=== PATIENT | female | born 1955 | race Caucasian/White ===

== ENCOUNTER 2018-02-01 00:33 | Outpatient (CLI) | payer BC, SELFPAY ==
--- NOTE | 2018-02-01 08:12 | DI.US_ITS ---
SYMPTOM/DIAGNOSIS: INTERMITTENT RUQ PAIN, R10.11 ABDOMEN ULTRASOUND: The aorta is normal. The vena cava is normal. The liver is intact. The gallbladder is normal. There are no stones or ductal dilatation. The pancreas and spleen are intact. The kidneys are normal. There is no evidence of abdominal free fluid. IMPRESSION: Normal abdomen ultrasound.
== END 2018-02-01 00:53 ==
PROVIDERS: PCP Family Medicine; Visit Provider Family Medicine
DX: R10.11 Right upper quadrant pain (principal)
CPT/HCPCS: 76700

== ENCOUNTER 2018-03-04 02:43 | Outpatient (CLI) | payer BC, SELFPAY ==
[2018-03-04 11:43] LABS: TSH (W/Ref FT4) 1.14 uIU/mL (0.358-3.74)
== END 2018-03-04 03:03 ==
PROVIDERS: PCP Family Medicine; Visit Provider Internal Medicine
DX: F41.9 Anxiety disorder, unspecified (principal); G43.909 Migraine, unspecified, not intractable, without status migrainosus
CPT/HCPCS: 36415; 84443

== ENCOUNTER 2018-03-09 01:12 | Outpatient (CLI) | payer BC, SELFPAY ==
--- NOTE | 2018-03-09 12:59 | DI.MAMMO_ITS ---
SYMPTOMS/DIAGNOSIS: SCREENING, Z12.31 BILATERAL SCREENING MAMMOGRAM: Mammograms were interpreted according to the usual protocol including computer analysis with CAD system, tomosynthesis and C view imaging. Comparison is made with exams from 2010 through 2017. The breasts are composed of heterogeneously dense fibroglandular tissue, breast density category C. No suspicious masses or suspicious microcalcifications are seen. There has been no significant change. IMPRESSION: Category 1C, negative mammogram. Yearly screening mammography is recommended. [facility] ASSESSMENT OF FINDINGS: Negative. Category 1. Patient will receive a letter notifying them of these results. Bi-RADS category C. The breasts are heterogeneously dense, which may obscure small masses.
--- NOTE | 2018-03-09 13:03 | DI.RAD_ITS ---
SYMPTOM/DIAGNOSIS: COUGH, RALES RT LUNG FIELD, R05 PA AND LATERAL CHEST: There are no prior comparison exams. The heart size is normal. The lungs appear clear. No infiltrate or effusion is seen. There is mild apical scarring. IMPRESSION: No acute abnormality.
== END 2018-03-09 01:32 ==
PROVIDERS: PCP Family Medicine; Visit Provider Family Medicine
DX: Z12.31 Encounter for screening mammogram for malignant neoplasm of breast (principal); R05 Cough; R09.89 Other specified symptoms and signs involving the circulatory and respiratory systems
CPT/HCPCS: 77063; 77067; 71046

== ENCOUNTER 2018-03-29 00:31 | Outpatient (CLI) | payer BC, SELFPAY ==
--- NOTE | 2018-03-29 12:56 | DI.NM_ITS ---
SYMPTOMS/DIAGNOSIS: RIGHT UPPER QUADRANT PAIN, NORMAL US, R10.11 CCK-HIDA SCAN: The patient received 4.9 mCi of technetium 99m Mebrofenin. The patient then received 0.89 mcg of CCK according to protocol. The liver, gallbladder, bile ducts and small bowel were visualized at the appropriate time intervals. During the infusion of CCK, the patient did experience right upper quadrant pain , which resolved. The gallbladder ejection fraction was calculated at 62% ( normal gallbladder ejection fraction at [facility] is >/= 40% with CCK). IMPRESSION: 1. Normal gallbladder ejection fraction. Normal visualization of the gallbladder and small bowel. 2. Right upper quadrant pain during the infusion of CCK.
== END 2018-03-29 00:51 ==
PROVIDERS: PCP Family Medicine; Visit Provider Surgery
DX: R10.11 Right upper quadrant pain (principal)
CPT/HCPCS: 78227

== ENCOUNTER 2018-04-26 08:15 | Day surgery (SDC) | payer BC, SELFPAY ==
[2018-04-26 08:38] VITALS: BP 105/70; PULSE 66; RESP 16; TEMP 37.6; O2SAT 100
[2018-04-26] MEDS: Lactated Ringers 1,000 ML 80 ML IV ×2 (09:05→11:02)
--- NOTE | 2018-04-26 10:02 | W.PM.HP.N ---
Date of service: 04/26/18 Time of Service: 10:02 Assessment and Plan (1) Family history of colon cancer: Current visit: No Status: Acute (2) Upper abdominal pain: Current visit: Yes Status: Acute (3) Encounter for screening colonoscopy: Current visit: Yes Status: Acute P\\ Colonoscopy and EGD under sedation Risks, benefits and complications have been reviewed. Complications include but are not limited to bleeding, pain, perforation, missed small lesion/polyp, sore throat, aspiration and adverse reaction to the medications. Questions were entertained and answered to their satisfaction and they wished to proceed. No guarantees were given or implied. Risks, benefits and complications have been reviewed. Complications include but are not limited to bleeding, pain, perforation, sore throat, aspiration, and adverse reaction to the medications. Questions were entertained and answered to their satisfaction and they wished to proceed. No guarantees were given or implied. History of Present Illness Narrative: Has had intermittent RUQ pain that sometimes radiates to her shoulder and back for a few month. Not always associated with food. Sometimes made worse with exercise. Did have some improvement after taking antibiotics for an ear infection. No N/V. Has had some intermittent heart burn in the past, usually if she drinks coffee after exercising. Doesn't take anything for it. Has an US which was negative for gallbladder disease. HIDA scan was normal as well Has had several surgeries in the lower abdomen. Oopherectomy and appendectomy. Her last Colonoscopy was in 2011 and was normal. Her father had colon cancer in his early 70's. She denies any changes in bowel habits, melena, hematochezia, or unintentional weight loss. There have been no changes in her health since I saw her last. 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 Grandfather Heart disease Myocardial infarction Stroke Grandfather Asthma Grandmother Heart disease Myocardial infarction Stroke Grandmother Heart disease Mental disorder Myocardial infarction Stroke Other Thyroid disease Status post corneal transplant (Acute) S/P colonoscopy (Acute ~2011) Appendectomy (~1976) Bilateral salpingectomy with oophorectomy section (~1990) Endometrial Biopsy [facility] Family History Mother Essential hypertension Hyperlipidemia MS (multiple sclerosis) Father Personal history of malignant neoplasm Hyperlipidemia Brother Hyperlipidemia Brother No problems noted. 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) Tension-type headache (Acute 02/21/13) Ptosis of eyelid (Acute 03/20/13) Migraine (Acute) Depression (Acute 01/01/16) Cervicalgia (Acute 04/17/13) Cataract (Acute 03/20/13) Bunion (Acute) Social History Smoking/Tobacco Use Status: Never alcohol intake: current alcohol intake frequency: a few times a week substance use type: does not use Surgical History Status post corneal transplant (Acute) S/P colonoscopy (Acute ~2011) Appendectomy (~1976) Bilateral salpingectomy with oophorectomy section (~1990) Endometrial Biopsy [facility] Social History Smoking/Tobacco Use Status: Never alcohol intake: current alcohol intake frequency: a few times a week substance use type: does not use Meds Home Medications Medication Instructions Recorded Confirmed Type carboxymethylcellulose sodium 1 ea OPHTHALMIC DAILY 11/21/14 04/26/18 History [Refresh Plus] prednisolone acetate [Pred Forte] 1 drp OPHTHALMIC BID PRN drp 11/21/14 04/26/18 History inhalational spacing device #1 aer 12/10/14 04/13/18 History [Aerochamber Mv] metoclopramide HCl 10 mg PO DAILY PRN #60 tab-cap 08/17/17 04/26/18 History albuterol sulfate [Proair Hfa] 1 - 2 puff INHALATION before 12/15/17 04/26/18 History exercise PRN #2 inhaler sod phos mono-sod phos dibasic 1.5 4 tab PO Q15M #32 tab 03/11/18 04/26/18 Rx gram (1.102-0.398) tablet ketorolac 10 mg tablet 10 mg PO q 8 h PRN #30 tab-cap 04/06/18 04/26/18 Rx lorazepam 1 mg tablet 0.5 - 1 mg PO HS PRN #20 tab 04/06/18 04/26/18 Rx cyclobenzaprine 10 mg tablet 10 mg PO TID PRN #30 tab 04/20/18 04/26/18 Rx Allergies Allergy/AdvReac Type Severity Reaction Status Date / Time Penicillins Allergy Unknown Unverified 04/26/18 08:33 codeine AdvReac Unknown Unverified 04/26/18 08:33 tramadol AdvReac Unknown Unverified 04/26/18 08:34 Exam Resp Effort & Inspection: normal respiratory effort Auscultation: clear to auscultation bilaterally Cardio Rate: regular rate Rhythm: regular rhythm Heart Sounds: no gallops, no murmurs and no rubs Results Last Vital Signs Temp 99.7 F H 04/26/18 08:38 Pulse 66 04/26/18 08:38 Resp 16 04/26/18 08:38 BP 105/70 04/26/18 08:38 Pulse Ox 100 04/26/18 08:38
--- NOTE | 2018-04-26 10:07 | W.PM.ENDDOP ---
Date of service: 04/26/18 Time of Service: Endoscopy Report DATE OF PROCEDURE: 04/26/18 PRE-OP DIAGNOSIS: Upper abdominal pain and family history of Colon Cancer POST-OP DIAGNOSIS: other (Gastritis, esophagitis, rectal polyp) PROCEDURE: Colonoscopy with polypectomy and EGD with biopsies SURGEON: Chantal Parekh ANESTHESIA: MAC (becky Reynolds, DANCE HISTORIAN / ASA 2) ESTIMATED BLOOD LOSS: 3 PATHOLOGY: other (Duodenal bx, gastric bx, GE junction bx, rectal polyp) COMPLICATIONS: None DISPOSITION: same day INDICATIONS: Mrs. Waterman is a pleasant 62-year-old female who was seen in the office for right upper quadrant/epigastric pain. She also was seen for a screening colonoscopy. She has a family history of colon cancer. For her upper abdominal pain she did have an ultrasound which was negative. HIDA scan was also done which was normal. Risks, benefits and complications of an upper endoscopy and colonoscopy were reviewed with her and she wished to proceed. No guarantees were given or implied. PREP: Miralax/Dulcolax PROCEDURE START TIME: : PROCEDURE END TIME: 11:04 COLONOSCOPY RETRACTION TIME: 13 FINDINGS: 1, Inflammation of the stomach with a small ulcer 2. Inflammation of the GE junction 3. rectal polyp PROCEDURE DESCRIPTION: After informed consent was obtained the patient was take to the procedure room and placed in a supine position. Monitors were applied and a time out was done. The patients name, date of , procedure type, allergies to medications and metal in their body was reviewed. A bite block was placed and the patient was sedated. Once sedated and comfortable the gastroscope was advanced through the oropharynx which was grossly normal into the esophagus. The proximal and mid-esophagus were normal. In the distal esophagus there was moderate inflammation noted. The scope was advanced into the stomach and through the pylorus into the 3rd portion of the duodenum. The duodenum was noted to be normal. Biopsies were done to rule out Celiac. The scope was retracted back into the stomach and biopsies were done to rule out H. pylori. There was one small ulcer in the body of the stomach. The scope was retroflexed. The cardia and fundus were noted to have inflammation. There was no hiatal hernia noted. The scope was retracted back into the esophagus and biopsies were done of the GE junction to rule out Fernandez's. The Z line was irrregular. The GE junction was at 40 cm. While the patient was still sedated they were placed in a left decubitous position. A rectal exam was done. External exam was normal. Internal exam revealed a normal sphincter tone and no palpable masses. The scope was then introduced and retro-flexed. No internal hemorrhoids were identified. The scope was then advanced to the cecum without difficulty. The TI and appendiceal orifice were identified. The prep was adequate. There was some soft green stool noted scattered throughout the colon. The scope was then slowly retracted over 13 minutes back into the rectum. One polyp was identified in the rectum and removed with forceps. The scope was removed and the patient was woken up and taken back to Same day surgery in stable condition. The patient tolerated the procedure well and there were no immediate complications. Follow up: 3-5 years for another Colonoscopy unless she develops new GI symptoms, like changes in bowel habits, melena or hematochezia. I will start her on Omeprazole 40 mg daily and call with results of her biopsies.
--- NOTE | 2018-04-26 10:10 | PDOC.DSDIS_ITS ---
Discharge Plan Disposition Patient Disposition: HOME Condition: Good Discharge Details Reason For Visit: FAM HX OF COLON CA/ upper abdominal pain Attending Provider: Chantal Parekh Primary Care Provider: Dang Hickey Home Meds and New Rx's Prescriptions: New omeprazole 40 mg capsule,delayed release(DR/EC) 40 mg PO DAILY Qty: 30 RF: 3 Continue sod phos mono-sod phos dibasic [OsmoPrep] 1.5 gram tablet 4 tab PO Q15M Qty: 32 RF: 0 prednisolone acetate [Pred Forte] 5 ML drops,suspension 1 drp Ophthalmic BID PRNRF: 0 carboxymethylcellulose sodium [Refresh Plus] 1 EACH dropperette 1 ea Ophthalmic DAILY RF: 0 inhalational spacing device [Aerochamber MV] 1 EACH spacer 1 ea Miscellaneous QID PRNQty: 1 RF: 0 metoclopramide HCl 5 MG tablet 10 mg PO DAILY PRNQty: 60 RF: 2 albuterol sulfate [ProAir HFA] 8.5 GM HFA aerosol inhaler 1 - 2 puff Inhalation before exercise PRNQty: 2 RF: 2 ketorolac 10 mg tablet 10 mg PO q 8 h PRN (Reason: migraine headache) Qty: 30 RF: 2 lorazepam 1 mg tablet 0.5 - 1 mg PO HS PRN Qty: 20 RF: 0 cyclobenzaprine 10 mg tablet 10 mg PO TID PRN (Reason: muscle spasm) Qty: 30 RF: 0 Discharge Instructions Instructions: Colonoscopy (DC), Upper Endoscopy (DC), Gastritis (DC), Diet for Stomach Ulcers and Gastritis (GEN), Esophagitis (DC), Colorectal Polyps (DC) Additional Instructions: Findings: Follow up: Please call if you develop: fevers >101.5 Nausea or Vomiting Abdominal pain that is not transient DAY SURGERY UNIT POST COLONOSCOPY INSTRUCTIONS 1. Because there will be medication in your system for the next 24 hours, you may feel a little sleepy. Your coordination will be affected. Therefore: a. Do not drive or operate dangerous equipment for 24 hours. b. Do not drink alcohol beverages for 24 hours (not even beer). c. Plan to go home and rest for the day. 2. Generally there are no restrictions on your activity after a day or so has gone by, but you may feel a bit fatigued for a few days. 3 After you arrive home you may have a light meal and return to a normal diet as you can tolerate it without feeling sick to your stomach. 4. After surgery, you may feel pain or discomfort. This should be only transient , but if it persists please contact your doctor. 5. If there are any questions regarding the findings of your procedure, please feel free to contact your doctor. 6. If you are unable to contact your doctor with a problem, contact the hospital at [phone]. 7. Continue all your regular medications unless directed otherwise. I understand the above instructions and have no questions. Signature of Patient or Responsible Adult Escort Date/Time Name of Responsible Adult Escort Signature of Nurse Date/Time Activity:: Activity as Tolerated Diet:: low acid Discharge Orders Discharge Orders: Discharge Order (Routine); Ordered 04/26/18 Ordered By: Chantal Parekh DS: Diagnosis Discharge Diagnosis (1) Family history of colon cancer: Status: Acute (2) Upper abdominal pain: Status: Acute (3) Encounter for screening colonoscopy: Status: Acute
--- NOTE | 2018-04-26 10:29 | BOWEL_PTH ---
PATIENT: Maria M Waterman LOC: [facility] U#:[id number] AGE/SX: 62/F ROOM: RE04/26/[address]: Chantal Parekh MD : 1955 BED: DIS: 04/26/2018 SPEC #: [id number] RECD: 04/26/18 12:58 STATUS: LEO REQ #: [id number] KARLI: 04/26/18 10:[address]: Chantal Parekh DEPT: Surgical Specimen RECD BY: Betsey Harden ENTERED: 04/26/18 13:01 SP TYPE: Bowel OTHR DR: Dang Hickey MD Tissues: 1 - BIOPSY BOWEL 2 - STOMACH BIOPSY 3 - STOMACH BIOPSY 4 - ESOPHAGUS BIOPSY 5 - BIOPSY BOWEL Procedures: GROSS AND MICRO LEVEL 4 Comments: [id number]
[2018-04-26 11:43] VITALS: BP 109/71; PULSE 57; RESP 16; TEMP 36.9; O2SAT 100
== END 2018-04-26 12:26 | disposition home or self-care (01) ==
PROVIDERS: PCP Family Medicine; Visit Provider Surgery
PROC: (CPT 43239; principal; 2018-04-26 10:00)
DX: Z12.11 Encounter for screening for malignant neoplasm of colon (principal); K62.1 Rectal polyp; Z80.0 Family history of malignant neoplasm of digestive organs; R10.11 Right upper quadrant pain; K29.80 Duodenitis without bleeding; K29.00 Acute gastritis without bleeding; K31.89 Other diseases of stomach and duodenum; K21.0 Gastro-esophageal reflux disease with esophagitis
CPT/HCPCS: 43239; 45380; 88305; NC; J2250; J3010

== ENCOUNTER 2018-05-06 13:46 | Outpatient (CLI) | payer BC, SELFPAY ==
[2018-05-06 15:15] LABS: TSH (W/Ref FT4) 1.34 uIU/mL (0.358-3.74)
[2018-05-09 14:55] LABS: IgA 118 mg/dL (85-499); Interpretation SEE COMMENTS; Tissue Transglutaminase IgA <1.2 U/mL (<4.0)
== END 2018-05-06 14:06 ==
PROVIDERS: Internal Medicine; PCP Family Medicine; Visit Provider Surgery
DX: R10.11 Right upper quadrant pain (principal); F41.9 Anxiety disorder, unspecified; G43.909 Migraine, unspecified, not intractable, without status migrainosus
CPT/HCPCS: 36415; 82784; 83516; 84443

== ENCOUNTER 2019-03-13 01:48 | Outpatient (CLI) | payer BC, SELFPAY ==
--- NOTE | 2019-03-13 11:38 | DI.MAMMO_ITS ---
EXAM: MG MAMMO SCREENING CLINICAL HISTORY: screening, Z12.39 TECHNIQUE: Bilateral full field digital CC and MLO mammographic images were obtained with 3D tomosyn thesis and utilizing computer aided detection (CAD). COMPARISON: Available for comparison. FINDINGS: Masses/Architectural Distortion: None seen. Microcalcifications: No suspicious pleomorphic-type are seen. Skin Thickening/Nipple Retraction: None. IMPRESSION: 1. No significant interval change with no specific features of malignancy noted. 2. Unless there is more urgent need, screening mammography is recommended, as per [employer] guidelines. ACR BI-RAD Category- 1 Negative Breast Density - Category C - Heterogeneously dense The mammogram demonstrates the patient's breast tissue is dense. Dense breast tissue is very common a nd is not abnormal but dense breast tissue can make it harder to find cancer on a mammogram. Also, de nse breast tissue may increase their breast cancer risk. This information about the result of the [facility] mogram report was provided to the patient to raise their awareness. Use this report when you speak wi th the patient about their risks for breast cancer, which includes their family history. At that time , you may recommend for more screening tests (Ultrasound or MRI) as they might be useful based on the ir risk. A negative radiographic report should not delay biopsy if a dominant or clinically suspicious mass is present. Up to ten percent of cancers are not identified on mammography. A negative report may reinforce clinical impression. Adenosis and dense breasts may obscure an underlying neoplasm. False positive reports average 6 to 10%.
== END 2019-03-13 02:08 ==
PROVIDERS: PCP Family Medicine; Visit Provider Family Medicine
DX: Z12.31 Encounter for screening mammogram for malignant neoplasm of breast (principal)
CPT/HCPCS: 77063; 77067

== ENCOUNTER 2020-03-12 09:57 | Outpatient (CLI) | payer OTHER, SELFPAY ==
--- NOTE | 2020-03-12 13:45 | DI.RAD_ITS ---
EXAM: XR ANKLE RT COMPLETE CLINICAL HISTORY: rolled foot M25.579 PAIN IN ANKLE, PAIN IN FOOT M79.673 TECHNIQUE: COMPARISON: CR XR FOOT RT COMPLETE from 03/12/2020 FINDINGS: Three views of the ankle and three views of the foot were obtained. No fracture is seen. The ankle mortise appears well maintained. There is a mild hallux valgus deformity of the foot. IMPRESSION: No evidence of acute fracture. RADIATION DOSE DELIVERED: Total DLP
== END 2020-03-12 10:17 ==
PROVIDERS: PCP Family Medicine; Visit Provider Nurse Practitioner
DX: M25.571 Pain in right ankle and joints of right foot (principal); M79.671 Pain in right foot
CPT/HCPCS: 73610; 73630

== ENCOUNTER 2020-06-26 08:42 | Outpatient (REF) | payer OTHER, SELFPAY ==
--- NOTE | 2020-06-26 07:30 | PAPFT_PTH ---
PATIENT: Maria M Waterman LOC: [facility] U#:[id number] AGE/SX: 64/F ROOM: RE06/26/[address]: Dang Hickey MD : 1955 BED: DIS: 06/26/2020 SPEC #: [id number] RECD: 06/26/20 12:55 STATUS: LEO REQ #: [id number] KARLI: 06/26/20 07:[address]: Dang Hickey DEPT: [facility] Cytology RECD BY: Betsey Harden Tissues: 1 - CX/ENDOCX FOR PAP SMEARS Procedures: PAP THIN PREP/UVM Screening HPV DNA PROBE Comments: [id number]
== END 2020-06-26 08:43 | disposition home or self-care (01) ==
LOC: LBN 08:42
PROVIDERS: PCP Family Medicine; Visit Provider Family Medicine
DX: Z12.4 Encounter for screening for malignant neoplasm of cervix (principal); Z11.51 Encounter for screening for human papillomavirus (HPV)
CPT/HCPCS: 88142; 87624

== ENCOUNTER 2020-08-29 10:53 | Outpatient (CLI) | payer OTHER, SELFPAY ==
[2020-08-30 13:29] LABS: COVID-19 RT-PCR UVMMC Result Negative (Negative)
== END 2020-08-29 10:54 | disposition home or self-care (01) ==
LOC: LBO 10:54
PROVIDERS: PCP Family Medicine; Visit Provider Family Medicine
DX: Z20.822 Contact with and (suspected) exposure to COVID-19 (principal); R05 Cough
CPT/HCPCS: U0003

== ENCOUNTER 2020-09-23 03:02 | Outpatient (CLI) | payer OTHER, SELFPAY ==
[2020-09-24 17:57] LABS: COVID-19 RT-PCR UVMMC Result Negative (Negative)
== END 2020-09-23 03:03 | disposition home or self-care (01) ==
LOC: LBO 03:02
PROVIDERS: PCP Family Medicine; Visit Provider Family Medicine
DX: Z20.822 Contact with and (suspected) exposure to COVID-19 (principal)
CPT/HCPCS: U0003

== ENCOUNTER 2020-12-12 03:59 | Outpatient (CLI) | payer OTHER, SELFPAY ==
[2020-12-12 13:02] LABS: Anion Gap 8.5 mmol/L (3-11); BUN 12 mg/dL (7-18); CO2 28.5 mmol/L (21.0-32.0); CREATININE 0.9 mg/dL (0.55-1.02); Calcium 9.8 mg/dL (8.5-10.1); Calculated LDL 157 mg/dL (<100); Chloride 105 mmol/L (98-107); Cholesterol 239 mg/dL (<200); Glucose 87 mg/dL (74-106); HDL Cholesterol 57 mg/dL (40-60); Potassium 4.5 mmol/L (3.5-5.1); Sodium 142 mmol/L (136-145); TSH 1.89 uIU/mL (0.36-3.74); Triglyceride 125 mg/dL (<150)
[2020-12-12 13:26] LABS: Vitamin B12 407 pg/mL (193-986)
== END 2020-12-12 04:00 | disposition home or self-care (01) ==
LOC: LOS 04:00
PROVIDERS: Nurse Practitioner Adult Health; PCP Family Medicine; Visit Provider Family Medicine
DX: R41.3 Other amnesia (principal); R53.83 Other fatigue; F32.9 Major depressive disorder, single episode, unspecified; Z13.220 Encounter for screening for lipoid disorders
CPT/HCPCS: 36415; 80048; 80061; 82607; 84443

== ENCOUNTER 2020-12-23 01:33 | Outpatient (CLI) | payer OTHER, SELFPAY ==
--- NOTE | 2020-12-23 07:30 | DI.MAMMO_ITS ---
Exam(s) MAMMO SCREENING EXAM: MAMMO SCREENING CLINICAL HISTORY: screening,Z12.39 TECHNIQUE: Mammograms were interpreted according to the usual protocol including computer analysis w [employer] CAD system, tomosynthesis and C-view imaging. COMPARISON: 2014 through 2018 FINDINGS: The breasts are composed of heterogeneously dense fibroglandular densities, Breast Density category C . No suspicious masses or suspicious microcalcifications are seen. No skin thickening or abnormal axillary lymph nodes are seen. There has been no significant change from prior exams. IMPRESSION: BI-RADS Category 1, Negative mammogram. Yearly screening mammography is recommended. Breast Density Category C, heterogeneously Dense. The mammogram demonstrates the patient's breast tissue is dense. Dense breast tissue is very common a nd is not abnormal but dense breast tissue can make it harder to find cancer on a mammogram. Also, de nse breast tissue may increase breast cancer risk. This information about the result of the mammogram report was provided to the patient to raise their awareness. Use this report when you speak with the patient about their risks for breast cancer, which includes their family history. At that time, you may recommend additional screening tests (Ultrasound or MRI) as they might be useful based on their r isk. A negative radiographic report should not delay biopsy if a dominant or clinically suspicious mass is present. Up to ten percent of cancers are not identified on mammography. A negative report may reinforce clinical impression. Adenosis and dense breasts may obscure an underlying neoplasm. False positive reports average 6 to 10%.
== END 2020-12-23 01:53 ==
PROVIDERS: PCP Family Medicine; Visit Provider Family Medicine
DX: Z12.31 Encounter for screening mammogram for malignant neoplasm of breast (principal)
CPT/HCPCS: 77063; 77067

== ENCOUNTER 2021-01-24 04:05 | Outpatient (CLI) | payer OTHER, SELFPAY ==
--- NOTE | 2021-01-24 08:55 | DI.DEXA_ITS ---
Exam(s) XR DEXA BONE DENSITY W/WO MARY EXAM: XR DEXA BONE DENSITY W/WO MARY CLINICAL HISTORY: [place] [facility] [place]85.[place] TECHNIQUE: COMPARISON: No exams were available for comparison FINDINGS: Lateral Spine Image: Unremarkable. No compression deformities identified. Left hip: Total T-Score: -1.3. Total Z-Score: -0.2. T- and Z-scores: Findings consistent with osteopenia. Lumbar Spine: Total T-Score: -2.5. Total Z-Score: -0.9. T- and Z-scores: Findings consistent with osteoporosis and high fracture risk. IMPRESSION: Osteoporosis in the lumbar spine.
== END 2021-01-24 04:25 ==
PROVIDERS: PCP Family Medicine; Visit Provider Family Medicine
DX: M85.88 Other specified disorders of bone density and structure, other site (principal); M81.0 Age-related osteoporosis without current pathological fracture
CPT/HCPCS: 77080

== ENCOUNTER → 2022-02-18 01:21 | Outpatient (CLI) | payer BC, SELFPAY ==
--- NOTE | 2022-02-18 08:11 | DI.MAMMO_ITS ---
Exam(s) MAMMO SCREENING EXAM: MAMMO SCREENING CLINICAL HISTORY: screening,z12.39 TECHNIQUE: Mammograms were interpreted according to the usual protocol including computer analysis w [employer] CAD system, tomosynthesis and C-view imaging. COMPARISON: 2014 through 2020 FINDINGS: The breasts are composed of heterogeneously dense fibroglandular densities, Breast Density category C . No suspicious masses or suspicious microcalcifications are seen. No skin thickening or abnormal axillary lymph nodes are seen. There has been no significant change from prior exams. IMPRESSION: BI-RADS Category 1, Negative mammogram. Yearly screening mammography is recommended. Breast Density Category C, heterogeneously Dense. The mammogram demonstrates the patient's breast tissue is dense. Dense breast tissue is very common a nd is not abnormal but dense breast tissue can make it harder to find cancer on a mammogram. Also, de nse breast tissue may increase breast cancer risk. This information about the result of the mammogram report was provided to the patient to raise their awareness. Use this report when you speak with the patient about their risks for breast cancer, which includes their family history. At that time, you may recommend additional screening tests (Ultrasound or MRI) as they might be useful based on their r isk. A negative radiographic report should not delay biopsy if a dominant or clinically suspicious mass is present. Up to ten percent of cancers are not identified on mammography. A negative report may reinforce clinical impression. Adenosis and dense breasts may obscure an underlying neoplasm. False positive reports average 6 to 10%.
== END ==
DX: Z12.31 Encounter for screening mammogram for malignant neoplasm of breast (principal)
CPT/HCPCS: 77063; 77067

== ENCOUNTER 2022-05-15 00:18 | Outpatient (CLI) | payer BC, SELFPAY ==
--- NOTE | 2022-05-15 11:45 | DI.MAMMO_ITS ---
Exam(s) MG MAMMO DIAGNOSTIC UNI EXAM: MG MAMMO DIAGNOSTIC UNI CLINICAL HISTORY: F/U BREAST US OF 05/12, DIAGNOSTIC,LT BREAST PAIN,N64.4 TECHNIQUE: Left cc and MLO mammogram images were performed according to the usual protocol [facility] computer analysis with CAD system, tomosynthesis and C-view imaging. COMPARISON: MG Combo Bilateral from 03/06/2016 MG Combo Bilateral from 03/12/2017 MG MG mammo screening from 03/09/2018 MG MG MAMMO SCREENING from 03/13/2019 MG MG MAMMO SCREENING from 12/23/2020 MG MG MAMMO SCREENING from 02/18/2022 US US BREAST LT COMPLETE from 05/12/2022 FINDINGS: The left breast is composed of heterogeneously dense fibroglandular tissue, breast density category C. No suspicious masses or suspicious microcalcifications are seen. There is a circumscribed ovoid no dule in the posterolateral left breast measuring 6 x 5 millimeters best seen on the CC view. No skin thickening or abnormal axillary lymph nodes are seen. IMPRESSION: BI-RADS Category 2 - Benign Findings Yearly screening mammography is recommended. Breast Density - Category C - Heterogeneously dense A negative radiographic report should not delay biopsy if a dominant or clinically suspicious mass is present. Up to ten percent of cancers are not identified on mammography. A negative report may reinforce clinical impression. Adenosis and dense breasts may obscure an underlying neoplasm. False positive reports average 6 to 10%. Patient will receive a letter notifying them of these results.
== END 2022-05-15 00:38 ==
LOC: DI 00:18
PROVIDERS: PCP Nurse Practitioner Family; Visit Provider Nurse Practitioner Family
DX: N64.4 Mastodynia (principal); N64.59 Other signs and symptoms in breast
CPT/HCPCS: 77061; 77065; G0279

== ENCOUNTER 2022-12-09 03:46 | Outpatient (CLI) | payer MEDICARE, SELFPAY ==
[2022-12-09 11:07] LABS: Anion Gap 7.4 mmol/L (3-11); BUN 17 mg/dL (7-18); CO2 27.6 mmol/L (21.0-32.0); CREATININE 0.9 mg/dL (0.55-1.02); Calcium 9.5 mg/dL (8.5-10.1); Calculated LDL 143 mg/dL (<100); Chloride 105 mmol/L (98-107); Cholesterol 216 mg/dL (<200); Estimated GFR 70.95 (mL/min/1.73m2); Glucose 92 mg/dL (74-106); HDL Cholesterol 56 mg/dL (40-60); Potassium 4.5 mmol/L (3.5-5.1); Sodium 140 mmol/L (136-145); Triglyceride 89 mg/dL (<150)
[2022-12-09 11:26] LABS: Hemoglobin A1C 5.5 % (<5.7); Vitamin D 25 Total 23.6 ng/mL (30-100)
== END 2022-12-09 03:47 | disposition home or self-care (01) ==
LOC: LOS 03:46
PROVIDERS: PCP Nurse Practitioner Family; Visit Provider Nurse Practitioner Family
DX: Z00.00 Encounter for general adult medical examination without abnormal findings (principal); M81.0 Age-related osteoporosis without current pathological fracture; E78.5 Hyperlipidemia, unspecified; R73.01 Impaired fasting glucose
CPT/HCPCS: 36415; 80048; 80061; 82306; 83036

== ENCOUNTER 2023-01-15 13:36 | Emergency (ER) | payer MEDICARE, SELFPAY ==
[2023-01-15 13:43] VITALS: BP 119/71; PULSE 72; RESP 20; TEMP 37.6; O2SAT 100
--- NOTE | 2023-01-15 14:00 | DI.CT_ITS ---
Exam(s) CT ABDOMEN PELVIS W EXAM: CT ABDOMEN PELVIS W CLINICAL HISTORY: abd pain TECHNIQUE: Imaging Protocol: Axial computed tomography images with coronal and sagittal reformatted images were created and reviewed CONTRAST MATERIAL: Intravenous: Omnipaque 350 Contrast volume:80 mL Oral: No COMPARISON: No exams were available for comparison FINDINGS: ABDOMEN: Lung Bases: Normal where visualized. Liver: Normal density. No measurable mass. Portal, Superior Mesenteric, and Splenic Veins: Unremarkable. Gallbladder and Biliary Tract: No radiodense calculus or dilation. Pancreas: Normal density, no abnormal calcifications or inflammatory process. Spleen: Normal. Adrenals: No masses seen. Kidneys: Normal size, contour and axis. No radiodense stones or obstructive uropathy. No masses seen. Abdominal Aorta: Abdominal portion non-dilated. Atherosclerosis. Bowel: There is thickening of the wall of the stomach. There is hyperenhancement of the mucosa. The re is no evidence of bowel obstruction. There is no evidence of appendicitis. Peritoneal Cavity: There is a small amount of free fluid in the pelvis. No free air. Lymph Nodes: Within normal limits. Bones: Within normal limits for the patient's age. Soft Tissues: Unremarkable. PELVIS: Bladder: Symmetric distention, no gross wall thickening. Reproductive Organs: Unremarkable as visualized. Lymph Nodes: Within normal limits. Bones: Within normal limits for the patient's age. IMPRESSION: 1. There is thickening of the wall of the stomach raising the question of gastritis, peptic ulcer dis ease or neoplasm. Upper GI/upper endoscopy should be considered in this patient for further evaluati on. 2. No findings to suggest acute diverticulitis. No evidence of bowel obstruction. 3. Findings were discussed with the emergency department at 5:05 p.m. on 01/15/2023. RADIATION DOSE DELIVERED: 637.46mGy.cm Total DLP DATA REPOSITORY: All CT scans at this facility are submitted to the National Radiology Data Registry (NRDR) Dose Index Registry (DIR) with the [employer] ([employer]). RADIATION OPTIMIZATION: All CT scans at this facility use at least one of these dose optimization te chniques: automated exposure control; mA and/or kV adjustment per patient size (includes targeted exa ms where dose is matched to clinical indication); or iterative reconstruction.
[2023-01-15] MEDS: Normal Saline 1,000 ML 1000 ML IV (14:28)
[2023-01-15] MEDS: Ketorolac 15 MG/ML VIAL IVP (14:29)
[2023-01-15] MEDS: Ondansetron 4 MG/2 ML VIAL IVP (14:30)
[2023-01-15 14:38] LABS: Abs Immature Grans 0.02 10^3/uL (0.0-0.06); Absolute Basophil Count 0.03 10^3/uL (0.0-0.2); Absolute Lymphocyte Count 1.21 10^3/uL (1.2-3.4); Absolute Monocyte Count 0.43 10^3/uL (0.1-0.8); Basophils % 0.5; HCT 41.3 % (36.0-46.0); HGB 14.4 g/dL (11.2-15.7); Immature Grans % 0.3; Lymphocytes % 18.4; MCH 29.1 pg (27.0-33.0); MCHC 34.9 % (32.0-36.0); MCV 84 fL (80-95); MPV 10.9 fL (8.0-11.0); Monocytes % 6.5; Neutrophils % 74.3; Platelet Count 197 10^3/uL (130-400); RBC 4.94 10^6/uL (3.93-5.22); RDW 11.9 % (11.7-14.6); RDW-SD 36.4 fL; WBC 6.59 10^3/uL (4.4-10.8)
--- NOTE | 2023-01-15 14:56 | W.ED.GENAD ---
Discharge Plan Discharge Details Chief Complaint: Abd Prob Primary Care Provider: Virginia Taylor ED Provider: Isrrael Mi Home Meds and New Rx's Prescriptions: No Action ketorolac 10 mg tablet 10 mg PO q 8 h PRN (Reason: migraine headache) Qty: 10 1RF Rx Instructions: take one tablet for migraine/ with food. Use sparingly ibuprofen [Advil] 200 mg tablet 400 mg PO Q6H PRN alendronate [Fosamax] 70 mg tablet 70 mg PO QWEEK Qty: 14 3RF carboxymethylcellulose sodium [Refresh Plus] 1 EACH dropperette 1 ea Ophthalmic DAILY Patient Comments: pt uses multiple times during the day lorazepam 1 mg tablet 0.5 - 1 mg PO QHS PRN (Reason: anxiety) Qty: 20 0RF Medical Decision Making Patient presenting to the emergency department for chief complaint of severe abdominal pain. Patient reports this started about a week ago and has had slow worsening symptoms with significant worsening over the past 24 hours. Patient states sharp left-sided abdominal pain, chills but no fever, has had single episode of vomiting and continued nausea. Patient has history of gastric ulcer greater than 10 years ago, endometriosis, hysterectomy, appendectomy and right oophorectomy. Physical exam shows significant left-sided upper and lower quadrant tenderness with no CVA tenderness and otherwise unremarkable exam beyond patient being noticeably in pain. We will plan on checking labs, lipase, and CT imaging with IV fluids, Zofran, and ketorolac given due to patient's allergies. We will continue to monitor. Reviewed patient's labs and CBC is completely unremarkable, CMP Shows slightly low carbon dioxide, anion gap elevated at 15.4, and glucose of 611 otherwise completely unremarkable labs. Lab Data Lab results reviewed: Yes I reviewed the patient's lab results. HPI General Mode of arrival: ambulatory. Date/Time Provider Initiated Documentation: 01/15/23 13:50. Limitations to Documentation: no limitations. Information obtained by: patient and RN notes reviewed. History of Present Illness 67 year old F presents to the emergency department with the chief complaint of Abdominal pain, described as moderate and severe, Quality is described as sharp, and is localized to the abdomen. Patient reports radiation to back. Patient started experiencing this week(s) (1) and it has been constant. No relieving factors improve symptom(s), No exacerbating factors reported . Patient did receive the following treatments prior to arrival, none Related Data Home Medications Medication Instructions Recorded Confirmed carboxymethylcellulose sodium 0.5 1 ea ophthalmic (eye) DAILY 11/21/14 12/03/22 % eye drops in a dropperette (Refresh Plus) ibuprofen 200 mg tablet (Advil) 400 mg PO Q6H PRN 10/28/21 12/03/22 ketorolac 10 mg tablet 10 mg PO q 8 h PRN migraine 07/06/22 12/03/22 headache #10 tab-caps lorazepam 1 mg tablet 0.5 - 1 mg PO QHS PRN anxiety #20 10/15/22 12/03/22 tabs alendronate 70 mg tablet (Fosamax) 70 mg PO QWEEK #14 tabs 12/03/22 12/03/22 Previous Rx's Medication Instructions Recorded ketorolac 10 mg tablet 10 mg PO q 8 h PRN migraine 07/06/22 headache #10 tab-caps lorazepam 1 mg tablet 0.5 - 1 mg PO QHS PRN anxiety #20 10/15/22 tabs alendronate 70 mg tablet (Fosamax) 70 mg PO QWEEK #14 tabs 12/03/22 Allergies Allergy/AdvReac Type Severity Reaction Status Date / Time codeine AdvReac Unknown intense Unverified 12/03/22 08:27 shaking Penicillins AdvReac Unknown severe Unverified 12/03/22 08:27 nausea tramadol AdvReac Unknown Unverified 12/03/22 08:27 General Stated Complaint: Abd Prob STEVEN: 3 Review of Systems Constitutional Constitutional: Reports chills, Denies fever(s) and Reports poor appetite Cardiovascular Cardiovascular: Denies chest pain and Denies dyspnea Respiratory Respiratory: Denies cough and Denies dyspnea Gastrointestinal Gastrointestinal: Reports as per HPI, Reports abdominal pain, Denies melena, Denies change in bowel habits, Denies constipation, Denies diarrhea, Reports nausea and Reports vomiting Genitourinary Genitourinary: Denies hematuria, Denies urinary incontinence, Denies urinary hesitancy and Denies urinary urgency Integumentary/Breasts Skin/Breast: Denies rash PFSH All Active Problems Osteoporosis (Chronic) Hyperlipidemia (Chronic) Generalized anxiety disorder (Chronic) Hearing loss (Chronic) 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) Tension-type headache (Chronic) Toradol and Metoclopramide for treatment Related to poor vision & neck spasms, better with PT Migraine (Chronic) Medical History Depression (01/01/16) 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 Son No problems noted. Son No problems noted. Daughter No problems noted. Daughter No problems noted. Maternal Grandfather Heart disease Maternal Grandmother Heart disease Paternal Grandfather COPD (chronic obstructive pulmonary disease) Paternal Grandmother Dementia Other Thyroid disease Social History Smoking/Tobacco Use Status: Never Smoking risk assessment performed?: Yes Alcohol Intake: current Alcohol Intake frequency: holidays/special occasions only Drug use: Never Substance use type: does not use Caregiver/Support person: No Household members: spouse Housing: house Number of Children: 6 number of grandchildren: 10 Communication Needs: Hard of Hearing and Corrective Lenses Pets and animals: Yes Pets and animals: cat(s) and dog(s) Sexually active: Yes Do you think of yourself as: straight/heterosexual Current gender identity: female What is your relationship status?: Do you belong to any clubs or organized social groups?: no Panel score (0-1 are the most socially isolated patients): 1 What type of physical activity do you participate in: none Seatbelt use: always Drive intox or ride w/intox experienced truck driver: No Do you feel safe at home: Yes Do you feel safe in your relationship?: Yes Exam Const General: cooperative Orientation: alert, awake and oriented x3 Resp Effort & Inspection: normal respiratory effort and able to speak in complete sentences Auscultation: clear to auscultation bilaterally Cardio Rate: regular rate Rhythm: regular rhythm Heart Sounds: S1 normal and S2 normal GI Palpation: soft, not firm, no guarding, no masses, no pulsatile masses, not rigid and tender in the LLQ and in the LUQ Auscultation: normal bowel sounds Back/Spine/Pelvis Back: no CVA tenderness Neuro General: patient alert, patient awake, patient oriented x3, gait normal and moves all extremities Course Vital Signs Vital signs: Vital Signs Temperature 37.6 C H 01/15/23 13:43 Pulse 72 01/15/23 13:43 Respiratory Rate 20 01/15/23 13:43 Blood Pressure 119/71 01/15/23 13:43 Pulse Oximetry 100 01/15/23 13:43 Temperature 37.6 C H 01/15/23 13:43 Temperature Source Tympanic 01/15/23 13:43 Pulse 72 01/15/23 13:43 Respiratory Rate 20 01/15/23 13:43 Respiratory Effort Labored 01/15/23 13:50 Blood Pressure 119/71 01/15/23 13:43 Blood Pressure Position Sitting 01/15/23 13:43 Pulse Oximetry 100 01/15/23 13:43 Oxygen Delivery Method Room Air 01/15/23 13:43 Oxygen Flow Rate 0 01/15/23 13:43 Pain Level 9 01/15/23 13:43 Lab/Test Results Lab/Test Results: Laboratory Tests Range/Units 01/15/23 14:30 WBC (4.4-10.8) 10^3/uL 6.59 RBC (3.93-5.22) 10^6/uL 4.94 Hgb (11.2-15.7) g/dL 14.4 Hct (36.0-46.0) % 41.3 MCV (80-95) fL 84 MCH (27.0-33.0) pg 29.1 MCHC (32.0-36.0) % 34.9 RDW (11.7-14.6) % 11.9 Plt Count (130-400) 10^3/uL 197 MPV (8.0-11.0) fL 10.9 Immature Gran % 0.3 Neutrophils % 74.3 Lymphocytes % 18.4 Monocytes % 6.5 Eosinophils % 0.0 Basophils % 0.5 Nucleated RBC % (0.0-0.3) % 0.0 Absolute Neutrophils (1.2-6.7) 10^3/uL 4.90 Absolute Lymphocytes (1.2-3.4) 10^3/uL 1.21 Absolute Monocytes (0.1-0.8) 10^3/uL 0.43 Absolute Eosinophils (0.0-0.7) 10^3/uL 0.00 Absolute Basophils (0.0-0.2) 10^3/uL 0.03 Sign Out Sign Out Data: Sign Out Comment: Patient pending results from CT imaging and disposition Last updated by Isrrael Mi NP at 01/15/23 15:51
[2023-01-15 15:11] LABS: ALT 27 U/L (14-59); AST 24 U/L (15-37); Albumin 4.3 g/dL (3.4-5.0); Alkaline Phosphatase 68 U/L (46-116); Anion Gap 15.4 mmol/L (3-11); BUN 15 mg/dL (7-18); Bilirubin, Total 0.4 mg/dL (0.2-1.0); CO2 20.6 mmol/L (21.0-32.0); CREATININE 0.8 mg/dL (0.55-1.02); Calcium 9.8 mg/dL (8.5-10.1); Chloride 101 mmol/L (98-107); Estimated GFR 81.72 (mL/min/1.73m2); Glucose 111 mg/dL (74-106); Lipase 58 U/L (16-77); Potassium 3.8 mmol/L (3.5-5.1); Sodium 137 mmol/L (136-145); Total Protein 7.7 g/dL (6.4-8.2)
[2023-01-15 15:48] LABS: Bilirubin Negative (Negative); Blood Moderate (Negative); Clarity Sl Cloudy (Clear); Glucose Negative (Negative); Ketones >=160 mg/dL (Negative); Leukocyte Esterase Negative (Negative); Nitrite Negative (Negative); Urobilinogen 0.2 mg/dL (Up to 0.2); pH 8.5 (5-8)
--- NOTE | 2023-01-15 15:55 | ED.PROG_ITS ---
Date of service: 01/15/23 Time of Service: 15:30 Medical Decision Making I have discussed the CT findings with the patient. I have advised her to avoid nonsteroidal anti-inflammatories, caffeine and alcohol. I will prescribe Protonix and I have arranged for outpatient surgical follow-up as well as primary care. She will follow-up with general surgery for possible upper endoscopy. The patient voiced understanding agreement the discharge plan. All her questions and concerns were addressed prior to discharge Medical Records Medical records reviewed: Yes I reviewed the patient's medical records. Imaging Data Radiologic Study: Imaging: CT Scan Radiologist's impression: Impression: 1. There is thickening of the wall of the stomach raising the question of gastritis, peptic ulcer disease or neoplasm.? Upper GI/upper endoscopy should be considered in this patient for further evaluation. 2. No findings to suggest acute diverticulitis.? No evidence of bowel obstruction.? 3. Findings were discussed with the emergency department at 5:05 p.m. on 01/15/2023.? Lab Data Lab results reviewed: Yes I reviewed the patient's lab results. Lab results narrative: Mild hematuria we will have her follow-up with urology. Narrative I have received signout seen and examined the patient. She is a 67-year-old female who with a history of peptic ulcer disease and GERD who presents with 1 week of mild bloating and 24 hours of abdominal pain primarily in the left lower quadrant. She has had chills and nausea. She states that she has had colonoscopies done here but cannot remember when. She has also had a history of a partial oophorectomy, and appendectomy. She has had chills but no fever. I did retake her temperature and it was normal. She is having intermittent abdominal pain which is 8 out of 10 at maximum. She has had fentanyl in the past. I will write for more IV fluids and fentanyl. We are awaiting her CT scan results. Sign Out Sign Out Data: Sign Out Comment: Patient pending results from CT imaging and disposition Last updated by Isrrael Mi NP at 01/15/23 15:51 Discharge Plan Disposition Patient Disposition: Home Condition: Improving Discharge Details Clinical Impression: Abdominal pain, Hematuria Primary Care Provider: Virginia Taylor ED Provider: Alana Cates Home Meds and New Rx's Prescriptions: New pantoprazole [Protonix] 40 mg tablet,delayed release (DR/EC) 40 mg PO DAILY Qty: 30 0RF No Action ketorolac 10 mg tablet 10 mg PO q 8 h PRN (Reason: migraine headache) Qty: 10 1RF Rx Instructions: take one tablet for migraine/ with food. Use sparingly ibuprofen [Advil] 200 mg tablet 400 mg PO Q6H PRN alendronate [Fosamax] 70 mg tablet 70 mg PO QWEEK Qty: 14 3RF carboxymethylcellulose sodium [Refresh Plus] 1 EACH dropperette 1 ea Ophthalmic DAILY Patient Comments: pt uses multiple times during the day lorazepam 1 mg tablet 0.5 - 1 mg PO QHS PRN (Reason: anxiety) Qty: 20 0RF Discharge Instructions Instructions: Hematuria (ED), Abdominal Pain (ED) Additional Instructions: 1. Call your primary care provider and notify them of today's visit. 2. You will be contacted by general surgery for the abdominal pain and possible upper endoscopy. You will also be contacted by urology for your blood that we noted in your urine. 3. Avoid nonsteroidal anti-inflammatories including Toradol Advil ibuprofen and Motrin. Avoid caffeine and alcohol. You may take acetaminophen for pain. You are given 4 tablets of hydrocodone/acetaminophen. This medication can be habit- forming and should be used for severe pain not relieved by acetaminophen alone. You should not drink alcohol drive or make important decisions or use heavy equipment while taking this medication. It can also cause somnolence and constipation. 4. Start Protonix once a day as directed. Bring this prescription with you to your follow-up appointment with primary care and general surgery. 5. Return here for any new or worrisome symptoms. Discharge Data Discharge Physician: Alana Cates
[2023-01-15 15:56] LABS: Bacteria Few HPF (Negative); C & S Indicated? Yes; Casts Negative LPF (Negative); Crystals Few Amorphous HPF (Negative); Epithelial Cells Few HPF (Negative); Mucus Negative (Negative)
[2023-01-15] MEDS: Normal Saline - Diluent 50 ML VIAL IJ (16:07)
[2023-01-15] MEDS: Normal Saline Flush 10 ML SYR IVP (16:07)
[2023-01-15] MEDS: fentaNYL 100 MCG/2 ML VIAL 25 MCG IVP ×2 (16:10→18:34)
--- NOTE | 2023-01-15 18:13 | NUR.NOTE ---
Nursing Note: PT needs follow up with urology for hematuria. Amara, ED
[2023-01-15 18:27] VITALS: BP 121/67; PULSE 64; RESP 18; O2SAT 98
[2023-01-15] MEDS: Pantoprazole 40 MG TABCR PO (18:34)
== END 2023-01-15 18:51 | disposition home or self-care (01) ==
PROVIDERS: Nurse Practitioner Family; Emergency Provider Emergency Medicine Emergency Medical Services; PCP Nurse Practitioner Family
DX: R10.9 Unspecified abdominal pain (principal); R31.9 Hematuria, unspecified
CPT/HCPCS: 80053; 83690; 96361; 96374; 96375; 99285; 74177; 81003; 81015; 83735; 85025; 87086; 99284; J1885; J2405; J3010

== ENCOUNTER → 2023-01-20 13:33 | Outpatient (BNVA) | payer MEDICARE, SELFPAY | PROVIDERS: PCP Nurse Practitioner Family; Referring Provider Nurse Practitioner Family; Visit Provider Surgery | DX: R10.9 Unspecified abdominal pain (principal) | CPT/HCPCS: 99213 ==

== ENCOUNTER 2023-02-05 09:50 | Day surgery (SDC) | payer MEDICARE, SELFPAY ==
--- NOTE | 2023-02-04 14:19 | W.PM.DSUDISC ---
Date of service: 02/05/23 Time of Service: 13:19 Discharge Plan Disposition Patient Disposition: Home Condition: Good Discharge Details Reason For Visit: EGD Attending Provider: Slick Mejia Primary Care Provider: Virginia Taylor Home Meds and New Rx's Prescriptions: Continued ketorolac 10 mg tablet 10 mg PO q 8 h PRN (Reason: migraine headache) Qty: 10 1RF Rx Instructions: take one tablet for migraine/ with food. Use sparingly Sutab 1.479-0.188- 0.225 gram tablet See Rx Instructions PO PER PKG DIR Qty: 24 0RF Rx Instructions: PO PER PKG DIR As instructed for colonoscopy prep sucralfate 1 gram tablet 1 g PO QACHS Qty: 120 0RF ibuprofen [Advil] 200 mg tablet 400 mg PO Q6H PRN alendronate [Fosamax] 70 mg tablet 70 mg PO QWEEK Qty: 14 3RF carboxymethylcellulose sodium [Refresh Plus] 1 EACH dropperette 1 ea Ophthalmic DAILY Patient Comments: pt uses multiple times during the day lorazepam 1 mg tablet 0.5 - 1 mg PO QHS PRN (Reason: anxiety) Qty: 20 0RF pantoprazole [Protonix] 40 mg tablet,delayed release (DR/EC) 40 mg PO DAILY Qty: 30 0RF Discontinued bisacodyl [Dulcolax (bisacodyl)] 5 mg tablet,delayed release (DR/EC) 5 mg PO ONCE Qty: 4 0RF Rx Instructions: take per colonoscopy instructions polyethylene glycol 3350 17 gram/dose powder 238 g PO ONCE Qty: 238 0RF Rx Instructions: take per colonoscopy instructions Discharge Instructions Additional Instructions: Maria M, we were able to complete your EGD and colonoscopy today without any difficulty. You do have some inflammatory changes within your stomach. It is limited to an area called the antrum. I perform multiple biopsies here. This could just be consistent with simple ulcers, however, I feel that biopsy is the safest thing to do. I would like you to continue taking your Protonix, and the sucralfate as needed. Your colonoscopy went totally fine. I did not see any abnormalities in your large intestine. I have taken the liberty of making a follow-up appointment with me in the office on February 17 at 1:45. Hopefully will have the biopsy results before that, and I will certainly give you a call as soon as they are available. 1. If tolerated, consume a soft, low fiber diet for 1-2 days. [address] Do not drive, drink alcohol, operate machinery, make critical decisions, or do activities that require coordination or balance for 24 hours. 3. Because air was put into your colon during the procedure, expelling air from your rectum (passing gas or farting) is normal. 4. You may not have a bowel movement for 1-3 days because of the colonoscopy prep. This is normal. 5. You may experience a sore throat for 24 to 48 hours. You may use throat lozenges or gargle with warm salt water to relieve the discomfort. 6. Because air was put into your stomach during the procedure, you may experience some belching. 7. Go directly to the emergency room if you notice any of the following: Develop chills (warm to touch), or if you have a thermometer and your temperature is above 101 Difficulty breathing or difficultly swallowing Persistent vomiting Severe abdominal pain, other than gas cramps Severe chest pain Black, tarry stools Any bleeding ? exceeding one tablespoon 8. Call your physician if the site where your intravenous was started becomes red, swollen, painful, and warm to touch. 9. Your physician has reviewed your pre-procedure medications. Please continue to take those medications as previously ordered. You will be given specific information/education regarding any changes to your medications before leaving. Activity:: Activity as Tolerated Diet:: As Tolerated Discharge Orders Discharge Orders: Discharge Order (Routine); Ordered 02/04/23 Ordered By: Slick Mejia DS: Diagnosis Discharge Diagnosis (1) Abdominal pain: Status: Acute Asessment and Plan: Follow-up on biopsy results
--- NOTE | 2023-02-04 14:24 | W.PM.ENDDOP ---
Date of service: 02/05/23 Time of Service: 13:21 Endoscopy Report DATE OF PROCEDURE: 02/05/23 PRE-OP DIAGNOSIS: Gastritis and screening colonoscopy POST-OP DIAGNOSIS: other (Antral lesion) PROCEDURE: EGD with biopsies and colonoscopy SURGEON: Slick Mejia ANESTHESIA TYPE: General:No Airway ESTIMATED BLOOD LOSS: 10 PATHOLOGY: other (Multiple biopsies of gastric antral lesion) COMPLICATIONS: None DISPOSITION: same day INDICATIONS: Maria M is 67 years old, and she comes to the emergency department with abdominal pain. She underwent CAT scan that demonstrated thickening of the stomach. We talked about the differential diagnosis of gastritis and peptic ulcer disease, and the role of endoscopy to help refine that diagnosis. She is also due for screening colonoscopy PREP: Miralax/Dulcolax PROCEDURE START TIME: 12:40 PROCEDURE END TIME: 13:02 COLONOSCOPY RETRACTION TIME: 9 FINDINGS: Gastric antral lesion PROCEDURE DESCRIPTION: After the initiation of monitored anesthetic care, and with the assistance of a bite block, I advanced a standard gastroscope through the mouth past the hypopharynx and into the esophagus.? Under the direct vision of the scope, I advanced down the esophagus into the stomach.? The GE junction was approximately 37 cm from the incisors. The Z-line was regular.? I advanced into the stomach and performed retroflexion. This appeared normal..? After that, I gently advanced the scope around the incisura angularis and examined the pylorus.? Just a few centimeters proximal to the pylorus, mostly along the lesser curvature, slightly extending toward the anterior wall, were heaped up areas of gastric mucosa with a central depression. There appeared to be some central scarring. There is no evidence of any active bleeding. Although a majority of the character appeared consistent with peptic ulcer, I felt the safest thing to do is perform biopsies to rule out gastric cancer. Biopsies were performed with cold forceps and there was minimal bleeding..? Next, I advanced the scope through the pylorus into the duodenum.? The mucosa was pink and healthy appearing.? There were no abnormalities.? I was able to visualize bile draining into the duodenum through the ampulla Vater. ?Next, I began retracting the endoscope.? Again, I returned to the stomach which was carefully examined one more time. The biopsy sites were basically hemostatic. The stomach was emptied of its contents, camera was brought out along the length of the esophagus. No other abnormalities were noted. Next we assisted Maria M into the left lateral decubitus position. I began by performing an external anorectal exam.? Perineum and skin were normal, as was the anal verge.? There was no evidence of external hemorrhoids.? Next, I performed a digital rectal exam.? I did not appreciate any abnormal findings.? Next, I advanced a colonoscope into the rectal vault.? I performed retroflexion.? This appeared normal.? Using insufflation, I then advanced the colonoscope beyond the rectal folds and into the sigmoid colon before advancing towards the cecum.? The quality of the prep was excellent.? The scope was noted to be in the cecum by identification of the ileocecal valve and appendiceal orifice.? I then began withdrawing the colonoscope using repeated irrigation as necessary for full evaluation of the colonic mucosa. ?Once the scope was withdrawn to the level of the rectum, great care was taken to examine portions of the rectal folds.? I did not see any signs of tumors, polyps, diverticulosis, or any other pathology in the large intestine. Finally, the scope was withdrawn and the patient was brought to the same-day surgery recovery unit as the anesthetic wore off. ?The findings and instructions were shared with the patient prior to discharge.
[2023-02-05 10:09] VITALS: BP 121/69; PULSE 70; RESP 16; TEMP 36.4; O2SAT 100
[2023-02-05] MEDS: Lactated Ringers 1,000 ML 80 ML IV (10:25)
--- NOTE | 2023-02-05 11:19 | ANES.PREOP_ITS ---
General Info Date of Service Date Performed: 02/05/23 Height: 5 ft 4 in Weight: 54.1 kg Body Mass Index (BMI): 20.5 Surgical Procedure: Operation Date: 02/05/23 11:20 Proposed Procedure Side Surgeon p Colonoscopy/Gastroscopy Slick Mejia MD Meds Allergies and Home Medications Allergies Allergy/AdvReac Type Severity Reaction Status Date / Time codeine AdvReac Unknown intense Verified 02/05/23 10:15 shaking Penicillins AdvReac Unknown severe Verified 02/05/23 10:15 nausea tramadol AdvReac Unknown Other (See Verified 02/05/23 10:15 Comment) Home Medication Medication Instructions Recorded carboxymethylcellulose sodium 0.5 1 ea ophthalmic (eye) DAILY 11/21/14 % eye drops in a dropperette (Refresh Plus) ibuprofen 200 mg tablet (Advil) 400 mg PO Q6H PRN 10/28/21 ketorolac 10 mg tablet 10 mg PO q 8 h PRN migraine 07/06/22 headache #10 tab-caps lorazepam 1 mg tablet 0.5 - 1 mg PO QHS PRN anxiety #20 10/15/22 tabs alendronate 70 mg tablet (Fosamax) 70 mg PO QWEEK #14 tabs 12/03/22 pantoprazole 40 mg tablet,delayed 40 mg PO DAILY #30 tabs 01/15/23 release (Protonix) sodium sul 1.479 gram-potas ch See Rx Instructions PO PER PKG DIR 01/20/23 0.188 gram-magnes sul 0.225 gram #24 tabs tablet (Sutab) sucralfate 1 gram tablet 1 g PO QACHS #120 tabs 01/20/23 Current Visit Medications: Current Medications Generic Name Dose Route Start Last Admin Trade Name Freq PRN Reason Stop Dose Admin Hyoscyamine Sulfate 0.125 mg 02/04/23 14:25 Hyoscyamine 0.125 Mg Sl/Oral/Chew SL 03/06/23 14:24 DIRECTED PRN Ringer's Solution 1,000 mls @ 80 mls/hr 02/05/23 06:00 02/05/23 10:25 IV 02/05/23 23:59 80 mls/hr INFUSION GAVINO Administration IV Miscellaneous Supplies 1 each 02/05/23 06:00 Iv Access IV 02/05/23 23:59 DIRECTED GAVINO Ondansetron HCl 4 mg 02/04/23 14:25 Ondansetron 4 Mg/2 Ml Vial IVP 03/06/23 14:24 Q4H PRN PRN Nausea / Vomiting Sodium Chloride 0 ml 02/05/23 06:00 Normal Saline Flush 10 Ml Syr IV 02/05/23 23:59 PRN PRN Sodium Chloride 0 ml 02/05/23 06:00 Normal Saline 10 Ml Vial IJ 02/05/23 23:59 DIRECTED PRN Sterile Water 0 ml 02/05/23 06:00 Water,Injection,Sterile 10 Ml Vial IJ 02/05/23 23:59 DIRECTED PRN PFSH Active Problems Active Problems: Problem Status Onset Code Sensorineural hearing loss H90.5 Abdominal pain R10.9 Hematuria R31.9 Osteoporosis M81.0 Hyperlipidemia E78.5 Generalized anxiety disorder F41.1 Hearing loss H91.90 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 Tension-type headache G44.209 Migraine G43.909 Medical History Medical History Depression (01/01/16) 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 Endometriosis Gastric ulcer Postmenopausal bleeding Surgical History Surgical History History of section History of esophagogastroduodenoscopy (EGD) (~04/26/18) Hx of bilateral salpingectomy S/P appendectomy S/P colonoscopy (~2017) S/P eye surgery For right eye dermoid tumor, cornea transplant x 4 S/P right oophorectomy 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, corneal transplant; recurrent tumor- radiation and surgery, Tobacco Smoking/Tobacco Use Status: Never Passive smoking exposure: Yes Alcohol Alcohol Intake: current Alcohol intake frequency: holidays/special occasions only Substance Use Substance use: Never Substance use type: does not use Vital Signs and Lab Results Vital Signs Most Recent Vital Signs in EMR: Most Recent Vital Signs Temp Pulse Resp BP Pulse Ox 36.4 C L 70 16 121/69 100 02/05/23 10:09 02/05/23 10:09 02/05/23 10:09 02/05/23 10:09 02/05/23 10:09 Lab Results Blood Type / Crossmatch: No Data to Display Complete Blood Count: White Blood Count 6.59 10^3/uL (4.4-10.8) 01/15/23 14:30 Red Blood Count 4.94 10^6/uL (3.93-5.22) 01/15/23 14:30 Hemoglobin 14.4 g/dL (11.2-15.7) 01/15/23 14:30 Hematocrit 41.3 % (36.0-46.0) 01/15/23 14:30 Platelet Count 197 10^3/uL (130-400) 01/15/23 14:30 Complete Metabolic Panel: Sodium 137 mmol/L (136-145) 01/15/23 14:30 Potassium 3.8 mmol/L (3.5-5.1) 01/15/23 14:30 Chloride 101 mmol/L (98-107) 01/15/23 14:30 Carbon Dioxide 20.6 mmol/L (21.0-32.0) L 01/15/23 14:30 BUN 15 mg/dL (7-18) 01/15/23 14:30 Creatinine 0.8 mg/dL (0.55-1.02) 01/15/23 14:30 Est GFR (CKD-EPI 2020) 81.72 (mL/min/1.73m2) 01/15/23 14:30 Magnesium 2.0 mg/dL (1.8-2.4) 01/15/23 14:30 Calcium 9.8 mg/dL (8.5-10.1) 01/15/23 14:30 Albumin 4.3 g/dL (3.4-5.0) 01/15/23 14:30 Glucose 111 mg/dL (74-106) H 01/15/23 14:30 Liver Function Panel: Alanine Aminotransferase (ALT/SGPT) 27 U/L (14-59) 01/15/23 14: 30 Aspartate Amino Transf (AST/SGOT) 24 U/L (15-37) 01/15/23 14:30 Coagulation Panel: No Data to Display Cardiac Panel: No Data to Display Arterial Blood Gas: No Data to Display Venous Blood Gas: No Data to Display Pancreas Panel: Lipase 58 U/L (16-77) 01/15/23 14:30 Thyroid Panel: No Data to Display Infectious Disease: No Data to Display Blood Cultures: No Data to Display Toxicology Panel: No Data to Display Anesthesia Assessment and Plan Anesthesia History Personal History: No History of Anesthesia Complications Family History: No Family History of Anesthesia Complications Exercise Tolerance Exercise Tolerance: Metabolic Equivalents>4 Pertinent Negatives Pertinent Negatives: No Symptoms of GERD Cardiac & Pulmonary Exam Cardiac Exam: Normal S1/S2 Heart Sounds Pulmonary Exam: Clear Bilateral Breath Sounds Implantable Cardiac Device Does patient have a Pacemaker or an ICD?: No Airway Exam Known Difficult Airway: No Mallampati Class: 2 Mouth Opening: Normal (> 3cm) Thyromental Distance: Greater than 3 cm Neck Range of Motion: Full ROM Neck Circumference: Normal Teeth Condition: Normal Dentition ASA Classification ASA Score: ASA 2 Emergency Case?: No NPO Status NPO Status: NPO Clears >2 hours, Solids >8 hours Anesthesia Plan Resuscitation Status: Full Code Anesthesia Technique: General Anesthesia Airway Planned: Natural Airway Monitors Used: Standard Monitors
[2023-02-05 11:20] VITALS: BMI 20.5
--- NOTE | 2023-02-05 12:45 | STOM_PTH ---
PATIENT: Maria M Waterman LOC: [facility] U#:[id number] AGE/SX: 67/F ROOM: RE02/05/[address]: Slick Mejia MD : 1955 BED: DIS: 02/05/2023 SPEC #: [id number] RECD: 02/05/23 13:33 STATUS: LEO RE #: [id number] KARLI: 02/05/23 12:[address]: Slick Mejia DEPT: Surgical Specimen RECD BY: Betsey Harden ENTERED: 02/05/23 13:34 SP TYPE: STOMACH OTHR DR: NICOLE Berger Tissues: 1 - STOMACH BIOPSY Procedures: GROSS AND MICRO LEVEL 4 IMMUNOPEROXIDASE STAIN Comments: [id number]
[2023-02-05 13:09] VITALS: BP 93/52; PULSE 65; RESP 14; TEMP 36.1; O2SAT 96
[2023-02-05 13:35] VITALS: BP 118/68; PULSE 57; RESP 16; TEMP 36.2; O2SAT 100
--- NOTE | 2023-02-05 14:09 | W.ANESPOSTOP ---
Postoperative Evaluation Date, Time and Location Date Performed: 02/05/23 Time Performed: 14:10 Patient Location: Day Surgery Unit Vital Signs Most Recent Imported Vital Signs: Most Recent Vital Signs Temp Pulse Resp BP Pulse Ox 36.2 C L 57 L 16 118/68 100 02/05/23 13:35 02/05/23 13:35 02/05/23 13:35 02/05/23 13:35 02/05/23 13:35 Pain Score Most Recent Pain Score: Most Recent Pain Score Pain Level 0 02/05/23 13:09 Assessment Mental Status: Awake (Alert & Oriented to Patient Baseline) Airway and Respiratory Function: Patent airway with normal (patient baseline) respiratory exam Cardiovascular Function: Hemodynamically Stable Hydration Status: Adequately Hydrated Nausea & Vomiting: No Nausea or Vomiting Pain: Pt. Denies Any Pain Peripheral Nerve Block: Patient did not receive a nerve block
== END 2023-02-05 14:15 | disposition home or self-care (01) ==
PROVIDERS: PCP Nurse Practitioner Family; Visit Provider Surgery
PROC: (CPT 43239; principal; 2023-02-05 11:15)
DX: K29.70 Gastritis, unspecified, without bleeding (principal); Z12.11 Encounter for screening for malignant neoplasm of colon; K31.89 Other diseases of stomach and duodenum
CPT/HCPCS: 43239; G0121; 88305; 88361

== ENCOUNTER 2023-02-10 15:21 | Outpatient (REF) | payer MEDICARE, SELFPAY ==
[2023-02-10 17:45] LABS: Bilirubin Negative (Negative); Blood Trace-intact (Negative); Clarity Turbid (Clear); Glucose Negative (Negative); Ketones Trace mg/dL (Negative); Leukocyte Esterase Trace (Negative); Nitrite Negative (Negative); Specific Gravity >= 1.030 (1.005-1.025); Urobilinogen 0.2 mg/dL (Up to 0.2); pH 5.5 (5-8)
[2023-02-10 18:11] LABS: Bacteria Rare HPF (Negative); C & S Indicated? Yes; Casts Negative LPF (Negative); Crystals Many Amorphous HPF (Negative); Epithelial Cells Rare HPF (Negative); Mucus Negative (Negative); RBC 0-2 HPF (0-2); WBC 0-2 HPF (0-5)
== END 2023-02-10 15:22 | disposition home or self-care (01) ==
LOC: LBN 15:21
PROVIDERS: PCP Nurse Practitioner Family; Visit Provider Nurse Practitioner Family
DX: R31.9 Hematuria, unspecified (principal); R82.998 Other abnormal findings in urine
CPT/HCPCS: 81003; 81015; 87086

== ENCOUNTER → 2023-02-17 13:36 | Outpatient (BNVA) | payer MEDICARE, SELFPAY | PROVIDERS: PCP Nurse Practitioner Family; Referring Provider Nurse Practitioner Family; Visit Provider Surgery | DX: Z48.815 Encounter for surgical aftercare following surgery on the digestive system (principal); K29.70 Gastritis, unspecified, without bleeding | CPT/HCPCS: 99214 ==

== ENCOUNTER → 2023-03-15 08:43 | Outpatient (BNVA) | payer MEDICARE, SELFPAY | PROVIDERS: PCP Nurse Practitioner Family; Referring Provider Nurse Practitioner Family; Visit Provider Nurse Practitioner Gerontology | DX: R31.29 Other microscopic hematuria (principal) | CPT/HCPCS: 81003; 99215 ==

== ENCOUNTER 2023-03-15 09:35 | Outpatient (REF) | payer MEDICARE, SELFPAY ==
[2023-03-15 11:18] LABS: Bilirubin Negative (Negative); Blood Small (Negative); Clarity Clear (Clear); Glucose Negative (Negative); Ketones Negative (Negative); Leukocyte Esterase Negative (Negative); Nitrite Negative (Negative); Specific Gravity 1.015 (1.005-1.025); Urobilinogen 0.2 mg/dL (Up to 0.2)
[2023-03-15 11:31] LABS: Bacteria Rare HPF (Negative); Casts Negative LPF (Negative); Crystals Negative HPF (Negative); Epithelial Cells Rare HPF (Negative); Mucus Negative (Negative); WBC 0-2 HPF (0-5)
[2023-03-15 11:32] LABS: C & S Indicated? No
== END 2023-03-15 09:36 | disposition home or self-care (01) ==
LOC: LBN 09:35
PROVIDERS: PCP Nurse Practitioner Family; Visit Provider Nurse Practitioner Gerontology
DX: R31.29 Other microscopic hematuria (principal)
CPT/HCPCS: 81003; 81015

== ENCOUNTER 2023-04-02 10:16 | Day surgery (SDC) | payer MEDICARE, SELFPAY ==
--- NOTE | 2023-04-01 15:16 | W.PREOPHP ---
Assessment and Plan Assessment and plan (1) Gastric ulcer: Assessment and plan: We reviewed the plan for repeat endoscopy with biopsies today. She has a good understanding of the risks and the benefits. We will proceed as planned. History of Present Illness History of Present Illness Chief Complaint: Peptic ulcer disease Narrative: Maria M is 67 years old, and she was seen in the emergency department at the end of the summer for a cute onset of left-sided abdominal pain. She underwent a CAT scan of the abdomen and pelvis that demonstrated thickening of the stomach. Subsequently, I performed an EGD on February 05. She had multiple areas of ulceration. I biopsied these. There was smooth muscle proliferation, but no signs of malignancy. She had some mild improvement of her symptoms after treatment with Protonix and sucralfate. Were performing another EGD to reassess the peptic ulcer disease, and repeat biopsy in an effort to rule out other pathology. 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 Depression (01/01/16) Surgical History Hx of appendectomy S/P eye surgery For right eye dermoid tumor, cornea transplant x 4 S/P right oophorectomy part of right ovary Hx of bilateral salpingectomy S/P appendectomy History of section History of esophagogastroduodenoscopy (EGD) (~01/2023) 2018 S/P colonoscopy (~2017) 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 Son No problems noted. Son No problems noted. Daughter No problems noted. Daughter No problems noted. Maternal Grandfather Heart disease Maternal Grandmother Heart disease Paternal Grandfather COPD (chronic obstructive pulmonary disease) Paternal Grandmother Dementia Other Thyroid disease Social History Smoking/Tobacco Use Status: Never Smoking risk assessment performed?: Yes Alcohol Intake: current Alcohol Intake frequency: holidays/special occasions only Alcohol type: beer Drug use: Never Substance use type: does not use Caregiver/Support person: No Household members: spouse Housing: house Number of Children: 6 number of grandchildren: 10 Communication Needs: Hard of Hearing and Corrective Lenses Pets and animals: Yes Pets and animals: cat(s) and dog(s) Sexually active: Yes Do you think of yourself as: straight/heterosexual Current gender identity: female What is your relationship status?: Do you belong to any clubs or organized social groups?: no Panel score (0-1 are the most socially isolated patients): 1 What type of physical activity do you participate in: none Seatbelt use: always Drive intox or ride w/intox substitute bus driver: No Do you feel safe at home: Yes Do you feel safe in your relationship?: Yes Meds Allergies and Home Medications Allergies Allergy/AdvReac Type Severity Reaction Status Date / Time codeine AdvReac Unknown intense Verified 04/01/23 12:01 shaking Penicillins AdvReac Unknown severe Verified 04/01/23 12:01 nausea tramadol AdvReac Unknown Other (See Verified 04/01/23 12:01 Comment) Home Medications Medication Instructions Recorded Confirmed Type carboxymethylcellulose sodium 0.5 1 ea ophthalmic (eye) DAILY 11/21/14 04/02/23 History % eye drops in a dropperette (Refresh Plus) ibuprofen 200 mg tablet (Advil) 400 mg PO Q6H PRN 10/28/21 04/02/23 History lorazepam 1 mg tablet 0.5 - 1 mg (0.5 - 1 x 1 mg) PO QHS 10/15/22 04/02/23 Rx PRN anxiety #20 tabs alendronate 70 mg tablet (Fosamax) 70 mg PO QWEEK #14 tabs 12/03/22 04/02/23 Rx sodium sul 1.479 gram-potas ch See Rx Instructions PO PER PKG DIR 01/20/23 04/02/23 Rx 0.188 gram-magnes sul 0.225 gram #24 tabs tablet (Sutab) ondansetron HCl 4 mg tablet 4 mg PO Q8H #12 tabs 02/18/23 04/02/23 Rx pantoprazole 40 mg tablet,delayed 40 mg PO DAILY #30 tabs 03/17/23 04/02/23 Rx release (Protonix) sucralfate 1 gram tablet 1 g PO QACHS #120 tabs 03/17/23 04/02/23 Rx ketorolac 10 mg tablet 10 mg PO Q8H PRN migraine headache 03/25/23 04/02/23 Rx #10 tab-caps Exam Const General: cooperative, healthy appearing and not in acute distress Neck Neck: normal visual inspection, no lymphadenopathy and supple Resp Effort & Inspection: normal respiratory effort Auscultation: clear to auscultation bilaterally Cardio Jugular venous pressure: no JVD Rate: regular rate Rhythm: regular rhythm Heart Sounds: S1 normal and S2 normal Neuro General: patient alert, patient awake and patient oriented x3 Psych Appearance: grossly normal
--- NOTE | 2023-04-01 15:20 | PDOC.DSDIS_ITS ---
Date of service: 04/02/23 Time of Service: 12:10 Discharge Plan Disposition Patient Disposition: Home Condition: Good Discharge Details Reason For Visit: EGD Attending Provider: Slick Mejia Primary Care Provider: Virginia Taylor Home Meds and New Rx's Prescriptions: Continued Sutab 1.479-0.188- 0.225 gram tablet See Rx Instructions PO PER PKG DIR Qty: 24 0RF Rx Instructions: PO PER PKG DIR As instructed for colonoscopy prep ibuprofen [Advil] 200 mg tablet 400 mg PO Q6H PRN alendronate [Fosamax] 70 mg tablet 70 mg PO QWEEK Qty: 14 3RF carboxymethylcellulose sodium [Refresh Plus] 1 EACH dropperette 1 ea Ophthalmic DAILY Patient Comments: pt uses multiple times during the day lorazepam 1 mg tablet 0.5 - 1 mg PO QHS PRN (Reason: anxiety) Qty: 20 0RF ondansetron HCl 4 mg tablet 4 mg PO Q8H Qty: 12 0RF Rx Instructions: Then 1 tablet by mouth if needed for nausea sucralfate 1 gram tablet 1 g PO QACHS Qty: 120 0RF pantoprazole [Protonix] 40 mg tablet,delayed release (DR/EC) 40 mg PO DAILY Qty: 30 0RF ketorolac 10 mg tablet 10 mg PO Q8H PRN (Reason: migraine headache) Qty: 10 1RF Rx Instructions: take one tablet for migraine/ with food. Use sparingly Discharge Instructions Additional Instructions: Maria M, we were able to complete your upper endoscopy today without any difficulty at all. It looks great today. I do not see any signs of active inflammation in your stomach. The previous areas of ulceration are completely healed. I did perform some random biopsies in this area, as well as the other parts of your stomach in order to be safe. At this point, if you would like to discontinue the sucralfate, I think that is probably very reasonable. I do think you should continue using the pantoprazole in an effort to keep any future stomach ulcers at bay. When I get the results of these repeat biopsies I will be in touch. 1. If tolerated, consume a soft, low fiber diet for 1-2 days. [address] Do not drive, drink alcohol, operate machinery, make critical decisions, or do activities that require coordination or balance for 24 hours. 3. You may experience a sore throat for 24 to 48 hours. You may use throat lozenges or gargle with warm salt water to relieve the discomfort. 4. Because air was put into your stomach during the procedure, you may exp erience some belching. 5. Go directly to the emergency room if you notice any of the following: Develop chills (warm to touch), or if you have a thermometer and your temperature is above 101 Difficulty breathing or difficultly swallowing Persistent vomiting Severe abdominal pain, other than gas cramps Severe chest pain Black, tarry stools Any bleeding ? exceeding one tablespoon 6. Call your physician if the site where your intravenous was started becomes red, swollen, painful, and warm to touch. 7. Your physician has reviewed your pre-procedure medications. Please continue to take those medications as previously ordered. You will be given specific information/education regarding any changes to your medications before leaving. Activity:: Activity as Tolerated Diet:: As Tolerated Discharge Orders Discharge Orders: Discharge Order (Routine); Ordered 04/01/23 Ordered By: Slick Mejia DS: Diagnosis Discharge Diagnosis (1) Gastric ulcer: Asessment and Plan: Endoscopy today shows no signs of any active gastritis. I will follow-up on random biopsies
--- NOTE | 2023-04-01 15:22 | W.PM.ENDDOP ---
Date of service: 04/02/23 Time of Service: 12:12 Endoscopy Report DATE OF PROCEDURE: 04/02/23 PRE-OP DIAGNOSIS: Peptic ulcer disease POST-OP DIAGNOSIS: other (Normal EGD) PROCEDURE: EGD with biopsies SURGEON: Slick Mejia ANESTHESIA TYPE: General:No Airway ESTIMATED BLOOD LOSS: 5 PATHOLOGY: other (Random biopsies of gastric antrum in the area of her previous ulcer, random gastric body biopsies. GE junction biopsies) COMPLICATIONS: None DISPOSITION: same day INDICATIONS: Maria M is a 67-year-old woman with midepigastric abdominal pain, and a CAT scan with a thickened stomach. She underwent endoscopy before which demonstrated areas of peptic ulcer disease. She is here for repeat EGD, and potential biopsies PROCEDURE START TIME: :50 PROCEDURE END TIME: FINDINGS: Normal EGD; GE junction at 37 cm PROCEDURE DESCRIPTION: After the initiation of monitored anesthetic care, and with the assistance of a bite block, I advanced a standard gastroscope through the mouth past the hypopharynx and into the esophagus.? Under the direct vision of the scope, I advanced down the esophagus into the stomach.? The GE junction was about 37 cm from the incisors. There was very minimal irregularity less than 1 cm above the GE junction. I advanced down into the stomach and performed retroflexion. I did not see any signs of hiatal hernia. I then brought the camera back into the 4 position and advanced down towards the incisura angularis. The gastric antrum was clearly visualized. The previous areas of inflammation and ulceration appeared to be completely resolved. Narrowband imaging was used to assist the examination of this area. It appeared normal. I advanced through the pylorus into the duodenum, which also appeared normal. I then brought the camera back into the stomach proper and perform some random biopsies in the area of her previous ulcer. This was performed with cold forceps without any complication. Again, narrowband imaging was used to examine the entire stomach as well as the GE junction. This all appeared normal. In order to rule out Helicobacter pylori as a source of her previous ulcers, I random cold forceps biopsies of the gastric body. I also performed a biopsy of the GE junction in the area of the Z-line irregularity. Once this was complete, I evacuated the stomach of all the insufflated gas, and brought the camera back out along the length of the esophagus and out the stomach. The patient was then transferred to the day surgery unit for final recovery.
[2023-04-02 10:28] VITALS: BP 123/72; PULSE 61; RESP 18; TEMP 36; O2SAT 98
[2023-04-02] MEDS: Lactated Ringers 1,000 ML 80 ML IV (11:08)
--- NOTE | 2023-04-02 11:29 | ANES.PREOP_ITS ---
General Info Date of Service Date Performed: 04/02/23 Height: 5 ft 4 in Weight: 54 kg Body Mass Index (BMI): 20.4 Surgical Procedure: Operation Date: 04/02/23 11:35 Proposed Procedure Side Surgeon p Gastroscopy Slick Mejia MD Meds Allergies and Home Medications Allergies Allergy/AdvReac Type Severity Reaction Status Date / Time codeine AdvReac Unknown intense Verified 04/01/23 12:01 shaking Penicillins AdvReac Unknown severe Verified 04/01/23 12:01 nausea tramadol AdvReac Unknown Other (See Verified 04/01/23 12:01 Comment) Home Medication Medication Instructions Recorded carboxymethylcellulose sodium 0.5 1 ea ophthalmic (eye) DAILY 11/21/14 % eye drops in a dropperette (Refresh Plus) ibuprofen 200 mg tablet (Advil) 400 mg PO Q6H PRN 10/28/21 lorazepam 1 mg tablet 0.5 - 1 mg (0.5 - 1 x 1 mg) PO QHS 10/15/22 PRN anxiety #20 tabs alendronate 70 mg tablet (Fosamax) 70 mg PO QWEEK #14 tabs 12/03/22 sodium sul 1.479 gram-potas ch See Rx Instructions PO PER PKG DIR 01/20/23 0.188 gram-magnes sul 0.225 gram #24 tabs tablet (Sutab) ondansetron HCl 4 mg tablet 4 mg PO Q8H #12 tabs 02/18/23 pantoprazole 40 mg tablet,delayed 40 mg PO DAILY #30 tabs 03/17/23 release (Protonix) sucralfate 1 gram tablet 1 g PO QACHS #120 tabs 03/17/23 ketorolac 10 mg tablet 10 mg PO Q8H PRN migraine headache 03/25/23 #10 tab-caps Current Visit Medications: Current Medications Generic Name Dose Route Start Last Admin Trade Name Freq PRN Reason Stop Dose Admin Hyoscyamine Sulfate 0.125 mg 04/01/23 15:21 Hyoscyamine 0.125 Mg Sl/Oral/Chew SL 05/01/23 15:20 DIRECTED PRN Ringer's Solution 1,000 mls @ 80 mls/hr 04/02/23 06:00 04/02/23 11:08 IV 05/01/23 23:59 80 mls/hr INFUSION GAVINO Administration IV Miscellaneous Supplies 1 each 04/02/23 06:00 Iv Access IV 05/01/23 23:59 DIRECTED GAVINO Ondansetron HCl 4 mg 04/01/23 15:21 Ondansetron 4 Mg/2 Ml Vial IVP 05/01/23 15:20 Q4H PRN PRN Nausea / Vomiting Sodium Chloride 0 ml 04/02/23 06:00 Normal Saline Flush 10 Ml Syr IV 05/01/23 23:59 PRN PRN Sodium Chloride 0 ml 04/02/23 06:00 Normal Saline 10 Ml Vial IJ 05/01/23 23:59 DIRECTED PRN Sterile Water 0 ml 04/02/23 06:00 Water,Injection,Sterile 10 Ml Vial IJ 05/01/23 23:59 DIRECTED PRN PFSH Active Problems Active Problems: Problem Status Onset Code Microscopic hematuria R31.29 Sensorineural hearing loss H90.5 Hearing loss H91.90 Osteoporosis M81.0 Hyperlipidemia E78.5 Generalized anxiety disorder F41.1 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 Tension-type headache G44.209 Migraine G43.909 Medical History Medical History Gastric ulcer Endometriosis Postmenopausal bleeding 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 Depression (01/01/16) Surgical History Surgical History Hx of appendectomy S/P eye surgery For right eye dermoid tumor, cornea transplant x 4 S/P right oophorectomy part of right ovary Hx of bilateral salpingectomy S/P appendectomy History of section History of esophagogastroduodenoscopy (EGD) (~01/2023) 2018 S/P colonoscopy (~2018) 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, corneal transplant; recurrent tumor- radiation and surgery, Tobacco Smoking/Tobacco Use Status: Never Passive smoking exposure: Yes Alcohol Alcohol Intake: current Alcohol intake frequency: holidays/special occasions only Alcohol type: beer Substance Use Substance use: Never Substance use type: does not use Vital Signs and Lab Results Vital Signs Most Recent Vital Signs in EMR: Most Recent Vital Signs Temp Pulse Resp BP Pulse Ox 36 C L 61 18 123/72 98 04/02/23 10:28 04/02/23 10:28 04/02/23 10:28 04/02/23 10:28 04/02/23 10:28 Lab Results Blood Type / Crossmatch: No Data to Display Complete Blood Count: No Data to Display Complete Metabolic Panel: No Data to Display Liver Function Panel: No Data to Display Coagulation Panel: No Data to Display Cardiac Panel: No Data to Display Arterial Blood Gas: No Data to Display Venous Blood Gas: No Data to Display Pancreas Panel: No Data to Display Thyroid Panel: No Data to Display Infectious Disease: No Data to Display Blood Cultures: No Data to Display Toxicology Panel: No Data to Display Anesthesia Assessment and Plan Anesthesia History Personal History: No History of Anesthesia Complications Family History: No Family History of Anesthesia Complications Exercise Tolerance Exercise Tolerance: Metabolic Equivalents>4 Pertinent Negatives Pertinent Negatives: No Symptoms of GERD, No Major Cardiovascular Symptoms or Complaints and No Major Pulmonary Symptoms or Complaints Cardiac & Pulmonary Exam Cardiac Exam: Normal S1/S2 Heart Sounds Pulmonary Exam: Clear Bilateral Breath Sounds Implantable Cardiac Device Does patient have a Pacemaker or an ICD?: No Airway Exam Known Difficult Airway: No Mallampati Class: 2 Mouth Opening: Normal (> 3cm) Thyromental Distance: Greater than 3 cm Neck Range of Motion: Full ROM Neck Circumference: Normal Teeth Condition: Normal Dentition ASA Classification ASA Score: ASA 2 Emergency Case?: No NPO Status NPO Status: NPO Clears >2 hours, Solids >8 hours Anesthesia Plan Resuscitation Status: Full Code Anesthesia Technique: General Anesthesia Airway Planned: Natural Airway Monitors Used: Standard Monitors
[2023-04-02 11:33] VITALS: BMI 20.4
--- NOTE | 2023-04-02 11:56 | STOM_PTH ---
PATIENT: Maria M Waterman LOC: [facility] U#:[id number] AGE/SX: 67/F ROOM: RE04/02/[address]: Slick Mejia MD : 1955 BED: DIS: 04/02/2023 SPEC #: [id number] RECD: 04/02/23 17:17 STATUS: LEO RE #: [id number] KARLI: 04/02/23 11:[address]: Slick Mejia DEPT: Surgical Specimen RECD BY: Betsey Harden ENTERED: 04/02/23 17:19 SP TYPE: STOMACH OTHR DR: Virginia Taylor, NICOLE Tissues: 1 - STOMACH BIOPSY 2 - STOMACH BIOPSY 3 - ESOPHAGUS BIOPSY Procedures: GROSS AND MICRO LEVEL 4 Comments: [id number]
[2023-04-02 12:13] VITALS: BP 123/72; PULSE 61; RESP 18; TEMP 36; O2SAT 98
--- NOTE | 2023-04-02 12:24 | W.ANESPOSTOP ---
Postoperative Evaluation Date, Time and Location Date Performed: 04/02/23 Time Performed: 12:07 Patient Location: Day [facility] Unit Vital Signs Most Recent Imported Vital Signs: Most Recent Vital Signs Temp Pulse Resp BP Pulse Ox 36.0 C L 61 18 123/72 98 04/02/23 12:13 04/02/23 12:13 04/02/23 12:13 04/02/23 12:13 04/02/23 12:13 Pain Score Most Recent Pain Score: Most Recent Pain Score Pain Level 0 04/02/23 12:13 Assessment Mental Status: Awake (Alert & Oriented to Patient Baseline) Airway and Respiratory Function: Patent airway with normal (patient baseline) respiratory exam Cardiovascular Function: Hemodynamically Stable Hydration Status: Adequately Hydrated Nausea & Vomiting: No Nausea or Vomiting Pain: Pt. Denies Any Pain Peripheral Nerve Block: Patient did not receive a nerve block
[2023-04-02 12:40] VITALS: BP 106/69; PULSE 57; RESP 16; TEMP 36.4; O2SAT 99
== END 2023-04-02 13:05 | disposition home or self-care (01) ==
LOC: SUR 10:17
PROVIDERS: PCP Nurse Practitioner Family; Visit Provider Surgery
PROC: 0DJ68ZZ Inspection of Stomach, Via Natural or Artificial Opening Endoscopic (ICD-10-PCS; CPT 43235; principal; 2023-04-02 11:30)
DX: K25.9 Gastric ulcer, unspecified as acute or chronic, without hemorrhage or perforation (principal); K29.71 Gastritis, unspecified, with bleeding
CPT/HCPCS: 43239; 88305; J2704

== ENCOUNTER → 2023-04-14 13:00 | Outpatient (BNVA) | payer MEDICARE, SELFPAY | PROVIDERS: PCP Nurse Practitioner Family; Referring Provider Nurse Practitioner Family; Visit Provider Surgery | DX: Z48.815 Encounter for surgical aftercare following surgery on the digestive system (principal); R10.9 Unspecified abdominal pain; K59.00 Constipation, unspecified | CPT/HCPCS: 99214 ==

== ENCOUNTER → 2023-04-29 00:35 | Outpatient (CLI) | payer MEDICARE, SELFPAY ==
--- NOTE | 2023-04-29 13:30 | DI.MAMMO_ITS ---
Exam(s) MAMMO SCREENING EXAM: MAMMO SCREENING CLINICAL HISTORY: screening,Z12.39 TECHNIQUE: Mammograms were interpreted according to the usual protocol including computer analysis w [employer] CAD system, tomosynthesis and C-view imaging. COMPARISON: 2014 through 2021 FINDINGS: The breasts are composed of heterogeneously dense fibroglandular densities, Breast Density category C . No suspicious masses or suspicious microcalcifications are seen. No skin thickening or abnormal axillary lymph nodes are seen. There has been no significant change from prior exams. IMPRESSION: BI-RADS Category 1, Negative mammogram. Yearly screening mammography is recommended. Breast Density Category C, heterogeneously Dense. The mammogram demonstrates the patient's breast tissue is dense. Dense breast tissue is very common a nd is not abnormal but dense breast tissue can make it harder to find cancer on a mammogram. Also, de nse breast tissue may increase breast cancer risk. This information about the result of the mammogram report was provided to the patient to raise their awareness. Use this report when you speak with the patient about their risks for breast cancer, which includes their family history. At that time, you may recommend additional screening tests (Ultrasound or MRI) as they might be useful based on their r isk. A negative radiographic report should not delay biopsy if a dominant or clinically suspicious mass is present. Up to ten percent of cancers are not identified on mammography. A negative report may reinforce clinical impression. Adenosis and dense breasts may obscure an underlying neoplasm. False positive reports average 6 to 10%.
--- NOTE | 2023-04-29 13:43 | DI.DEXA_ITS ---
Exam(s) XR DEXA BONE DENSITY W/WO MARY EXAM: XR DEXA BONE DENSITY W/WO MARY CLINICAL HISTORY: SCREENING FOR OSTEOPOROSIS IN POSTMENOPAUSAL WOMAN,Z78.0 TECHNIQUE: [employer] C densitometer analysis of left hip, lumbar spine and left forearm. Lat eral survey image of the thoracic and lumbar spine. COMPARISON: CR XR DEXA BONE DENSITY W/WO MARY from 01/24/2021 FINDINGS: Lateral view of the thoracic and lumbar spine shows no evidence of compression fractures. Bone mineral density measurements of the lumbar spine correspond to a total T-score of -2.8, in the osteoporotic range. This represents a 3.7 percent decrease from 2020. Bone mineral density measurements of the left hip correspond to a total T-score of -1.7, in the osteo penic range. This represents a 6.7 percent decrease from the prior exam. . The femoral neck T-scor e is -1.7. Theleft forearm bone mineral density measurements correspond to a T-score of the distal 3rd of -2.6, in the osteoporotic range. This represents a 5.6 percent decrease from 2020.. IMPRESSION: Osteoporosis of the spine and forearm. Osteopenia of the left hip. Mild decreases in bone density c ompared to prior exam.
== END ==
PROVIDERS: PCP Nurse Practitioner Family; Visit Provider Nurse Practitioner Family
DX: Z13.820 Encounter for screening for osteoporosis (principal); Z78.0 Asymptomatic menopausal state; M85.89 Other specified disorders of bone density and structure, multiple sites; Z12.31 Encounter for screening mammogram for malignant neoplasm of breast
CPT/HCPCS: 77063; 77067; 77080

== ENCOUNTER → 2023-05-11 08:53 | Outpatient (BNVA) | payer MEDICARE, SELFPAY | PROVIDERS: PCP Nurse Practitioner Family; Referring Provider Nurse Practitioner Family; Visit Provider Urology | DX: R31.29 Other microscopic hematuria (principal) | CPT/HCPCS: 52000; 81003 ==

== ENCOUNTER 2023-05-28 04:29 | Outpatient (CLI) | payer MEDICARE, SELFPAY ==
[2023-05-31 13:21] LABS: Gastrin 37 pg/mL
== END 2023-05-28 04:30 | disposition home or self-care (01) ==
LOC: LOS 04:29
PROVIDERS: PCP Nurse Practitioner Family; Visit Provider Physician Assistant Medical
DX: K25.9 Gastric ulcer, unspecified as acute or chronic, without hemorrhage or perforation (principal)
CPT/HCPCS: 36415; 82941

== ENCOUNTER → 2023-06-23 08:49 | Outpatient (BNVA) | payer MEDICARE, SELFPAY | PROVIDERS: PCP Nurse Practitioner Family; Referring Provider Nurse Practitioner Family; Visit Provider Surgery | DX: R11.2 Nausea with vomiting, unspecified (principal) | CPT/HCPCS: 99213 ==

== ENCOUNTER 2023-12-08 01:27 | Outpatient (CLI) | payer MEDICARE, SELFPAY ==
[2023-12-08 13:07] LABS: BUN 17 mg/dL (7-18); Calcium 9.4 mg/dL (8.5-10.1); Chloride 105 mmol/L (98-107); Estimated GFR 62.13 (mL/min/1.73m2); Glucose 131 mg/dL (74-106); Potassium 4.1 mmol/L (3.5-5.1); Sodium 141 mmol/L (136-145); Vitamin D 25 Total 24.7 ng/mL (30-100)
[2023-12-08 13:12] LABS: Lipase 60 U/L (16-77)
[2023-12-08 19:16] LABS: HBs Antibody, Quant 5.6 mIU/mL (See Note); Hep B Surface Ab Negative (See Note); Hepatitis B Core Antibody Negative (Negative); Hepatitis B Surface Antigen Negative (Negative)
[2023-12-08 19:23] LABS: HIV-1/2 Ag & Ab Screen Negative (Negative)
== END 2023-12-08 01:28 | disposition home or self-care (01) ==
LOC: LOS 01:27
PROVIDERS: PCP Nurse Practitioner Family; Referring Provider Nurse Practitioner Family; Visit Provider Nurse Practitioner Family
DX: Z11.4 Encounter for screening for human immunodeficiency virus [HIV] (principal); Z11.59 Encounter for screening for other viral diseases; M81.0 Age-related osteoporosis without current pathological fracture; Z00.00 Encounter for general adult medical examination without abnormal findings; R31.29 Other microscopic hematuria
CPT/HCPCS: 36415; 80048; 82306; 83690; 86704; 86706; 87340; 87389

== ENCOUNTER 2024-05-12 00:27 | Outpatient (CLI) | payer MEDICARE, SELFPAY ==
--- NOTE | 2024-05-12 06:15 | DI.MAMMO_ITS ---
Exam(s) MAMMO SCREENING EXAM: MAMMO SCREENING CLINICAL HISTORY: screening, Z12.39 TECHNIQUE: Mammograms were interpreted according to the usual protocol including computer analysis w [employer] CAD system, tomosynthesis and C-view imaging. COMPARISON: 2014 through 2022 FINDINGS: The breasts are composed of heterogeneously dense fibroglandular densities, Breast Density category C . No suspicious masses or suspicious microcalcifications are seen. No skin thickening or abnormal axillary lymph nodes are seen. There has been no significant change from prior exams. IMPRESSION: BI-RADS Category 1, Negative mammogram. Yearly screening mammography is recommended. Breast Density Category C, heterogeneously Dense. The mammogram demonstrates the patient's breast tissue is dense. Dense breast tissue is very common a nd is not abnormal but dense breast tissue can make it harder to find cancer on a mammogram. Also, de nse breast tissue may increase breast cancer risk. This information about the result of the mammogram report was provided to the patient to raise their awareness. Use this report when you speak with the patient about their risks for breast cancer, which includes their family history. At that time, you may recommend additional screening tests (Ultrasound or MRI) as they might be useful based on their r isk. A negative radiographic report should not delay biopsy if a dominant or clinically suspicious mass is present. Up to ten percent of cancers are not identified on mammography. A negative report may reinforce clinical impression. Adenosis and dense breasts may obscure an underlying neoplasm. False positive reports average 6 to 10%.
== END 2024-05-12 00:47 ==
LOC: DI 00:28
PROVIDERS: PCP Nurse Practitioner Family; Visit Provider Nurse Practitioner Family
DX: Z12.31 Encounter for screening mammogram for malignant neoplasm of breast (principal)
CPT/HCPCS: 77063; 77067

== ENCOUNTER 2024-07-14 00:44 | Outpatient (CLI) | payer MEDICARE, SELFPAY ==
[2024-07-14 13:04] LABS: Anion Gap 8.1 mmol/L (3-11); BUN 11 mg/dL (7-18); CO2 24.9 mmol/L (21.0-32.0); CREATININE 0.8 mg/dL (0.55-1.02); Calcium 9.5 mg/dL (8.5-10.1); Calculated LDL 130 mg/dL (<100); Chloride 107 mmol/L (98-107); Cholesterol 210 mg/dL (<200); Estimated GFR 81.21 (mL/min/1.73m2); Glucose 88 mg/dL (74-106); HDL Cholesterol 58 mg/dL (>or=50); Sodium 140 mmol/L (136-145); TSH (W/Ref FT4) 1.55 uIU/mL (0.36-3.74); Triglyceride 114 mg/dL (<150)
== END 2024-07-14 00:45 | disposition home or self-care (01) ==
LOC: LOS 00:44
PROVIDERS: PCP Nurse Practitioner Family; Visit Provider Nurse Practitioner Family
DX: E78.5 Hyperlipidemia, unspecified (principal); M81.0 Age-related osteoporosis without current pathological fracture; E55.9 Vitamin D deficiency, unspecified
CPT/HCPCS: 36415; 80048; 80061; 82306; 84443

== ENCOUNTER → 2025-05-11 08:19 | Outpatient (BNVA) | payer MEDICARE, SELFPAY | PROVIDERS: PCP Nurse Practitioner Family; Referring Provider Nurse Practitioner Family; Visit Provider Urology | DX: R31.29 Other microscopic hematuria (principal); R10.812 Left upper quadrant abdominal tenderness | CPT/HCPCS: 99214; 81002 ==

== ENCOUNTER → 2025-05-15 08:26 | Outpatient (CLI) | payer MEDICARE, SELFPAY ==
--- NOTE | 2025-05-15 08:43 | DI.MAMMO_ITS ---
Exam(s) MAMMO SCREENING EXAM: MAMMO SCREENING CLINICAL HISTORY: screening,z12.39 TECHNIQUE: Mammograms were interpreted according to the usual protocol including computer analysis with CAD system, tomosynthesis and C-view imaging. COMPARISON: 2015 through 2019 FINDINGS: The breasts are composed of heterogeneously dense fibroglandular densities, Breast Density category C. No suspicious masses or suspicious microcalcifications are seen. No skin thickening or abnormal axillary lymph nodes are seen. There has been no significant change from prior exams. IMPRESSION: BI-RADS Category 1, Negative mammogram. Yearly screening mammography is recommended. Breast Density: Category C - The breasts are heterogeneously dense, which may obscure small masses. Breast density Category C or D implies that the patient has dense breast tissue. Dense breast tissue can make it harder to find cancer on a mammogram. Dense breast tissue is also associated with an increased risk of breast cancer. This information about the result of the mammogram report was provided to the patient to raise their awareness. Use this report when you speak with the patient about their risks for breast cancer, which includes their family history. At that time, you may recommend additional screening tests (Ultrasound or MRI) as these tests may add significant information. A negative radiographic report should not delay biopsy if a dominant or clinically suspicious mass is present. Up to ten percent of cancers are not identified on mammography. A negative report may reinforce clinical impression. Adenosis and dense breasts may obscure an underlying neoplasm. False positive reports average 6 to 10%.
== END ==
LOC: DI 08:26
PROVIDERS: PCP Nurse Practitioner Family; Visit Provider Nurse Practitioner Family
DX: Z12.31 Encounter for screening mammogram for malignant neoplasm of breast (principal); R92.323 Mammographic fibroglandular density, bilateral breasts
CPT/HCPCS: 77063; 77067